=== PATIENT | female | born 1930 | race Caucasian/White ===

== ENCOUNTER 2017-10-07 14:50 | Emergency (ER) | payer BC, MEDICARE, OTHER ==
--- NOTE | 2017-10-07 17:50 | RAD ---
CHEST ONE VIEW ABDOMEN TWO VIEWS: History: 86-year-old female with concern for small bowel obstruction. Enlarged stoma and bag not fitting prope rly. Comparison: 05-01-[address] scan. FINDINGS: Atherosclerosis and old granuloma calcification changes are noted within the chest. The abdomen demon strates left inferior lateral ostomy site containing a moderate amount of gas consistent with bowel h erniation within the ostomy site which was present at the time of the prior CT. No evidence for large or small bowel obstruction. No free intraperitoneal air. There is one air fluid level in a nondilate d small bowel loop. IMPRESSION: Left inferior lateral stoma containing a moderate amount of gas, evidence for a bowel herniation with in the stoma which was present at the time of the prior CT. No evidence of overt acute large or small bowel obstruction although there are a few scattered nonspecific air fluid levels and nondilated sma ll bowel. POS: [facility]
== END 2017-10-07 16:46 | disposition home or self-care (01) ==
LOC: SCSER 14:50
DX: K94.09 Other complications of colostomy (principal); E78.5 Hyperlipidemia, unspecified
CPT/HCPCS: 74022

== ENCOUNTER 2017-11-16 14:45 | Outpatient (CLI) | payer MEDICARE, BC | END 2017-11-16 14:46 | disposition home or self-care (01) | LOC: WCC 14:45 | PROVIDERS: ATTEND Family Medicine | DX: K94.00 Colostomy complication, unspecified (principal) | CPT/HCPCS: 97139; G0463; 99211 ==

== ENCOUNTER 2017-11-22 17:34 | Emergency (ER) | payer MEDICARE, BC ==
[2017-11-22 18:50] LABS: #Basophils 0.2 thou/uL (0.0-0.2); #Eosinphils 0.6 thou/uL (0.0-0.7); #Lymphocytes 1.8 thou/uL (1.20-3.40); #Monocytes 0.8 thou/uL (0.11-0.59); #Neutrophils 4.7 thou/uL (1.40-6.50); %Basophils 2.5 % (0.0-1.0); %Eosinophils 7.5 % (0.0-10.0); %Lymphocytes 22.4 % (21.0-51.0); %Monocytes 9.2 % (0.0-10.0); %Neutrophils 58.4 % (42.0-75.0); Hemoglobin 11.4 g/dL (12.0-16.0); Mean Corpuscular HGB CONC 33.2 g/dL (32.0-36.0); Mean Corpuscular Hemoglobin 31.1 pg (27.0-31.0); Mean Corpuscular Volume 93.6 fl (81.0-99.0); Mean Platelet Volume 6.9 fL (7.4-10.4); Platelet Count 224 thou/uL (130-400); RBC Distribution Width 12.1 % (11.5-14.5); Red Blood Cell (RBC) Count 3.68 mill/uL (4.20-5.40); White Blood Cell (WBC) Count 8.1 thou/uL (4.8-10.8)
[2017-11-22 18:59] LABS: ALT (SGPT) 38 U/L (8-55); AST (SGOT) 42 U/L (5-34); Albumin 3.7 g/dL (3.4-4.8); Alkaline Phosphatase 52 U/L (40-150); Anion Gap 11 mmol/L (10-20); BUN (Urea Nitrogen) 22 mg/dL (9.8-20.1); Bilirubin, Total 0.3 mg/dL (0.2-1.2); Calc. Creatinine Clearance 0 mL/min (70-130); Calcium 9.3 mg/dL (7.8-10.44); Carbon Dioxide 30 mmol/L (23-31); Chloride 104 mmol/L (98-107); Estimated GFR-MDRD 51; Globulin 3.1 g/dL (2.4-3.5); Glucose 110 mg/dL (83-110); Potassium 3.4 mmol/L (3.5-5.1); Protein, Total 6.8 g/dL (6.0-8.3); Sodium 142 mmol/L (136-145)
[2017-11-22 19:28] LABS: Bilirubin Negative (Negative); Blood, Urine Negative (Negative); Clarity Hazy (Clear); Glucose, Urine (Dipstick) Negative (Negative); Leukocyte Small (Negative); Nitrite Negative (Negative); Protein, Urine (Dipstick) Negative (Neg-Trace); Urobilinogen 0.2 mg/dL (0.2-1.0)
--- NOTE | 2017-11-22 19:34 | CT ---
CT HEAD WITHOUT CONTRAST: 11/22/17 Multiple axial tomograms obtained through the head without IV enhancement. HISTORY: Fall with injury to head. There is mild cortical atrophy. No evidence of acute hemorrhage or contusion. No mass or infarct seen . Sinuses and mastoids are well aerated. IMPRESSION: Chronic changes. No acute abnormality identified. POS: [facility]
[2017-11-22 19:36] LABS: Bacteria/HPF 1+ HPF (None Seen); RBC/HPF None Seen HPF (0-3)
--- NOTE | 2017-11-22 19:42 | CT ---
CT CERVICAL SPINE: 11/22/17 Multiple axial tomograms obtained through the cervical spine with multiplanar reconstructions. HISTORY: Fall with injury to neck. Cervical vertebrae maintain height and alignment. There are mild to moderate degenerative changes. Di sc narrowing is prominent at C5-6 and C6-7 with hypertrophic changes at these levels. Facet hypertrop hy. No evidence of cervical spine fracture. IMPRESSION: Degenerative changes of the cervical spine. No evidence of acute fracture. POS: [facility]
[2017-11-22] MEDS ORDERED: Ibuprofen 600 MG TAB ONE (21:42)
== END 2017-11-22 21:45 | disposition home or self-care (01) ==
LOC: SCSER 17:34
DX: S09.90XA Unspecified injury of head, initial encounter (principal); M54.2 Cervicalgia; E78.5 Hyperlipidemia, unspecified; W01.190A Fall on same level from slipping, tripping and stumbling with subsequent striking against furniture, initial encounter; Y92.009 Unspecified place in unspecified non-institutional (private) residence as the place of occurrence of the external cause
CPT/HCPCS: 70450; 72125; 80053; 81003; 81015; 85025; 87086

== ENCOUNTER 2017-12-17 13:52 | Outpatient (CLI) | payer MEDICARE, BC | END 2017-12-17 13:53 | disposition home or self-care (01) | LOC: BICRAD 13:52 | PROVIDERS: ATTEND Internal Medicine | DX: M25.552 Pain in left hip (principal); R10.2 Pelvic and perineal pain; M79.651 Pain in right thigh | CPT/HCPCS: 72170 ==

== ENCOUNTER 2018-06-25 17:12 | Emergency (ER) | payer MEDICARE, BC ==
[2018-06-25 17:29] LABS: Bilirubin Small (Negative); Blood, Urine Small (Negative); Glucose, Urine (Dipstick) Negative (Negative); Leukocyte Trace (Negative); Nitrite Negative (Negative); Protein, Urine (Dipstick) 100 mg/dL (Neg-Trace)
[2018-06-25 17:30] LABS: Clarity Hazy (Clear)
[2018-06-25 17:36] LABS: Bacteria/HPF 2+ HPF (None Seen); WBC/HPF 0-3 HPF (0-3)
== END 2018-06-25 19:04 | disposition home or self-care (01) ==
LOC: SCSER 17:12
DX: N39.0 Urinary tract infection, site not specified (principal); E78.5 Hyperlipidemia, unspecified
CPT/HCPCS: 81003; 81015; 99284

== ENCOUNTER 2018-09-13 15:01 | Outpatient (CLI) | payer MEDICARE, BC ==
[~2018-09-13 15:01] MED LIST: Sodium Chloride 0.9% 15 ML NEB ONE
== END 2018-09-13 15:02 | disposition home or self-care (01) ==
LOC: WCC 15:01
PROVIDERS: ATTEND Family Medicine
DX: K45.8 Other specified abdominal hernia without obstruction or gangrene (principal); L98.499 Non-pressure chronic ulcer of skin of other sites with unspecified severity
CPT/HCPCS: 97139; G0463; 99211; A4218

== ENCOUNTER 2018-09-16 13:02 | Outpatient (CLI) | payer MEDICARE, BC | END 2018-09-16 13:03 | disposition home or self-care (01) | LOC: WCC 13:02 | PROVIDERS: ATTEND Family Medicine | DX: K43.5 Parastomal hernia without obstruction or gangrene (principal); L98.499 Non-pressure chronic ulcer of skin of other sites with unspecified severity | CPT/HCPCS: 97602 ==

== ENCOUNTER 2018-12-02 14:32 | Inpatient (IN) | payer MEDICARE, BC ==
[~2018-12-02 14:32] MED LIST changes: +Iopamidol 370 76% 100 ML VIAL ONE; -Sodium Chloride 0.9% 15 ML NEB ONE
[2018-12-02 15:36] LABS: Bilirubin Small (Negative); Blood, Urine Negative (Negative); Clarity CLEAR (Clear); Glucose, Urine (Dipstick) Negative (Negative); Leukocyte Negative (Negative); Nitrite Negative (Negative); Protein, Urine (Dipstick) 100 mg/dL (Neg-Trace); Specific Gravity, Urine 1.021 (1.002-1.036)
[2018-12-02 15:37] LABS: Bacteria/HPF None Seen HPF (None Seen); Hyaline Casts/LPF 7-10 HYALINE CAST LPF (0-3 Hyaline); Squamous Epithelial 0-3 HPF (0-3); WBC/HPF 0-3 HPF (0-3)
[2018-12-02 15:47] LABS: #Lymphocytes 0.6 thou/uL (1.20-3.40); #Monocytes 0.4 thou/uL (0.11-0.59); #Neutrophils 5.7 thou/uL (1.40-6.50); %Basophils 0.3 % (0.0-1.0); %Eosinophils 0.4 % (0.0-10.0); %Lymphocytes 9.3 % (21.0-51.0); Hemoglobin 10.5 g/dL (12.0-16.0); Mean Corpuscular HGB CONC 32.2 g/dL (32.0-36.0); Mean Corpuscular Hemoglobin 30.6 pg (27.0-31.0); Mean Corpuscular Volume 95.3 fL (78.0-98.0); Platelet Count 332 thou/uL (130-400); RBC Distribution Width 12.6 % (11.5-14.5); Red Blood Cell (RBC) Count 3.43 mill/uL (4.20-5.40); White Blood Cell (WBC) Count 6.8 thou/uL (4.8-10.8)
[2018-12-02] MEDS ORDERED: cefTRIAXone\\ROCEPHIN 2 GM VIAL ONE (15:49)
[2018-12-02] MEDS ORDERED: Acetaminophen 500 MG TAB ONE (15:49)
[2018-12-02 16:07] LABS: ALT (SGPT) 28 U/L (8-55); AST (SGOT) 71 U/L (5-34); Albumin 2.8 g/dL (3.4-4.8); Alkaline Phosphatase 65 U/L (40-150); Anion Gap 12 mmol/L (10-20); BUN (Urea Nitrogen) 9 mg/dL (9.8-20.1); Bilirubin, Total 0.7 mg/dL (0.2-1.2); CK (CPK) 56 U/L (29-168); Calc. Creatinine Clearance 0 mL/min (70-130); Calcium 8.2 mg/dL (7.8-10.44); Carbon Dioxide 23 mmol/L (23-31); Chloride 100 mmol/L (98-107); Estimated GFR-MDRD 73; Globulin 2.8 g/dL (2.4-3.5); Glucose 105 mg/dL (83-110); Protein, Total 5.6 g/dL (6.0-8.3); Sodium 132 mmol/L (136-145)
--- NOTE | 2018-12-02 16:15 | RAD ---
SINGLE VIEW CHEST: Date: 12/02/18 COMPARISON: 02/05/17. HISTORY: Decreased appetite. Nausea, vomiting, and fever. FINDINGS: Single view of the chest shows normal sized cardiomediastinal silhouette. A calcified granuloma is se en in the left upper lobe. There is no evidence of consolidation or pleural effusion. IMPRESSION: No evidence of acute cardiopulmonary disease. POS: [facility]
[2018-12-02 16:21] LABS: Potassium 2.8 mmol/L (3.5-5.1)
[2018-12-02] MEDS ORDERED: Potassium Chloride 20 MEQ TAB ONE (16:28)
[2018-12-02 16:31] LABS: CKMB 0.5 ng/mL (0-6.6)
--- NOTE | 2018-12-02 17:22 | CT ---
CT ABDOMEN AND PELVIS WITH IV CONTRAST: Date: 12/02/18 INDICATION: History of left-sided flank pain with history of bladder suspension surgery, hysterectomy, colostomy, and basal cell removal. COMPARISON: Prior CT of the abdomen and pelvis dated 05/01/17. FINDINGS: The exam is compared to the prior dated 05/01/17. There are small bilateral pleural effusions and bibasilar atelectasis. There is a small pericardial effusion. There is a tiny hypodensity within the left hepatic lobe on image 10 of series, which is relatively s table to the prior exam. The gallbladder is surgically absent. The pancreas, adrenal glands, and spleen appear within normal limits. There is a stable, 2.0 cm, cyst involving the mid right kidney. There are tiny hypodensities involving both kidneys, too small to ch aracterize. There are moderate calcifications involving the abdominal aorta. There is a left lower quadrant parastomal hernia containing small bowel and large bowel. There is mil d free fluid in the pelvis. There is prominent wall thickening and paracolonic inflammatory stranding involving the sigmoid colon . There is a peripherally enhancing paracolonic fluid collection adjacent to the sigmoid colon and le ft external iliac vasculature on image 56 of series 4 measuring 4.6 x 5.7 cm greatest mediolateral AP dimension suspicious for a paracolonic abscess. The remaining colon is largely decompressed. There is some suspected mild wall thickening involving p ortions of the transverse colon and ascending colon, which may reflect additional changes of colitis. The diverting colostomy is largely decompressed. There is scattered degenerative and osteoarthritic change. IMPRESSION: 1. Prominent colitis involving the sigmoid colon with paracolonic abscess. 2. Wall thickening involving the remainder of the colon, some of which may be related to accentuatio n of the appearance of the wall thickness due to decompression, but a diffuse colitis possibly relate d to inflammatory bowel disease or infectious colitis cannot be entirely excluded. There is no overt evidence of obstruction. 3. Small bilateral pleural effusions and pericardial effusion. 4. Mild free fluid in the pelvis. 5. Large left lower quadrant parastomal hernia containing unobstructed loops of small and large abdiaziz l. 6. Renal cysts. 7. Cholecystectomy. POS: [facility]
[2018-12-02] MEDS ORDERED: Sodium Chloride 0.9% 100 ML ONE (18:20)
[2018-12-02] MEDS ORDERED: Piperacillin/Tazobactam 4.5 GM VIAL ONE (18:20)
[2018-12-02] MEDS ORDERED: Sodium Chloride 0.9% 1,000 ML IV SCH (20:00)
--- NOTE | 2018-12-02 20:05 | RAD ---
LEFT HIP TWO VIEWS: HISTORY: Left hip pain. FINDINGS: There is mild degenerative arthrosis of the left hip. There is diffuse osteopenia. No definite acut e fracture is evident. There is IV contrast within the region of the bladder, likely related to the patient's prior CT of the abdomen and pelvis, performed earlier, at 4:39 p.m. There is healed deform ity involving the left inferior pubic ramus. IMPRESSION: No acute osseous abnormality. POS: [facility]
[2018-12-02 20:46] LABS: Troponin I 0.027 ng/mL (< 0.028)
--- NOTE | 2018-12-02 20:53 | HP ---
HISTORY OF PRESENT ILLNESS: Bell Owen is an 87-year-old female, who was previously living at home, but recently moved into [facility], an assisted living. The patient's brother is at the bedside currently and gives me reliable history. The patient's brother found her in her room and in [place], lethargic. He reports that she had been complaining of left hip pain. He brought her to the emergency room. She is found to have a sodium of 132, potassium of 2.8, BUN and creatinine of 9 and 0.75, a fever to 102 degrees. Liver function tests normal. The patient's brother reports she has been complaining of left hip pain. Hip x-rays have not been obtained, and we will order the stat. The patient apparently was ambulatory in the past and driving until 4 months ago, but has not driven since them. The patient abruptly left her home, put it on the market and removed into [place]. The patient's brother is uncertain how she has been obtaining food and supplies that she has not driven recently. The patient is a DNR. Her brother has power of consumer attorney. The patient in February 2017, underwent loop diverting colostomy for an obstructing left colon probably from stricture. She has developed a parastomal hernia. CAT scan of the abdomen and pelvis obtained this hospitalization reveals a parastomal hernia, colon, and large bowel. There is suggestion of a 4 x 3 cm fluid collection with thickened colon wall in this area, although, I cannot appreciate that. The patient is lethargic and I cannot obtain a history from here. ALLERGIES: NONE. SOCIAL HISTORY: Tobacco, none. Alcohol, none. MEDICATIONS: At home: 1. Sertraline. 2. Senokot. 3. Crestor. 4. MiraLAX. 5. Protonix. 6. Tums. 7. Pepto-Bismol. 8. Dulcolax. 9. Amiodarone 400 mg b.i.d. 10. Maalox. 11. Tylenol Extra Strength p.r.n. PAST SURGICAL HISTORY: In 2017, loop colostomy secondary to left colon obstruction. Dr. Ramos performed colonoscopy prior. Hysterectomy, urine suspension. PAST MEDICAL HISTORY: Skin cancers, dyslipidemia, hypertension. The patient has had an overall decline in her health and physical status and mental status. Her brother reports mental deterioration recently with decreased ability to care for herself. The patient has been uncooperative with her brother, although, he is power of consumer attorney. PHYSICAL EXAMINATION: VITAL SINGS: Blood pressure 124/70, heart rate 80, and respiratory rate 18. HEENT: The patient opens eyes to voice. LUNGS: Clear to auscultation. CARDIAC: Regular rate and rhythm. ABDOMEN: Soft, parastomal hernia. She has mild tenderness in her abdomen. EXTREMITIES: Unremarkable. LABORATORY DATA: Sodium 132, potassium 2.8, BUN 9, and creatinine 0.75. DIAGNOSTIC DATA: Echocardiogram of January 2017, 60% to 65% ejection fraction, 2/3 diastolic dysfunction, mild mitral aortic and tricuspid regurgitation. Chest x-ray unremarkable, no acute Urinalysis unremarkable. ASSESSMENT AND PLAN: Fever, lethargy, and abdominal tenderness. Her white count is normal. There is no left shift. There are no acute findings on the CAT scan. I questioned the collection described by the radiologist as I cannot appreciate that on her CAT scan. We would recommend admission to the Medical Service. Continue DNR status. Normal saline hydration. Even though her BUN and creatinine are normal, I think she is significantly dehydrated. Dr. Maguire will return tomorrow, and she will follow her up, make further recommendations, pending clinical course and hydration, discussion with family. Job ID: [id number]
[2018-12-02 23:36] LABS: Troponin I 0.014 ng/mL (< 0.028)
[2018-12-03] MEDS ORDERED: Piperacillin/Tazobactam 4.5 GM VIAL ONE (00:13)
[2018-12-03] MEDS ORDERED: Piperacillin/Tazobactam 3.375 GM VIAL ONE ×3 (00:16→12:46)
[2018-12-03 04:01] LABS: ALT (SGPT) 45 U/L (8-55); AST (SGOT) 112 U/L (5-34); Alkaline Phosphatase 73 U/L (40-150); Anion Gap 17 mmol/L (10-20); BUN (Urea Nitrogen) 9 mg/dL (9.8-20.1); Bilirubin, Total 0.8 mg/dL (0.2-1.2); Calc. Creatinine Clearance 0 mL/min (70-130); Calcium 8.8 mg/dL (7.8-10.44); Carbon Dioxide 20 mmol/L (23-31); Chloride 107 mmol/L (98-107); Estimated GFR-MDRD 64; Globulin 3.3 g/dL (2.4-3.5); Glucose 98 mg/dL (83-110); Potassium 3.9 mmol/L (3.5-5.1); Protein, Total 6.3 g/dL (6.0-8.3); Sodium 140 mmol/L (136-145)
[2018-12-03 04:20] LABS: #Lymphocytes 0.9 thou/uL (1.20-3.40); #Monocytes 0.5 thou/uL (0.11-0.59); #Neutrophils 14.5 thou/uL (1.40-6.50); %Basophils 0.3 % (0.0-1.0); %Eosinophils 0.3 % (0.0-10.0); %Lymphocytes 5.9 % (21.0-51.0); %Monocytes 3.2 % (0.0-10.0); %Neutrophils 90.4 % (42.0-75.0); Hemoglobin 13.1 g/dL (12.0-16.0); Mean Corpuscular HGB CONC 30.7 g/dL (32.0-36.0); Mean Corpuscular Hemoglobin 29.9 pg (27.0-31.0); Mean Corpuscular Volume 97.6 fL (78.0-98.0); Mean Platelet Volume 8.1 fL (7.4-10.4); Platelet Count 358 thou/uL (130-400); Red Blood Cell (RBC) Count 4.37 mill/uL (4.20-5.40)
[2018-12-03] MEDS ORDERED: Sodium Chloride 0.9% 100 ML ONE ×2 (06:21→12:46)
--- NOTE | 2018-12-03 06:44 | HP ---
PRIMARY CARE PHYSICIAN: Venus Lee MD CODE STATUS: DNR/DNI. TIME OF EVALUATION: 8:30 p.m. CHIEF COMPLAINT: Weakness. HISTORY OF PRESENT ILLNESS: This is an 88-year-old female patient with past medical history of multiple comorbidities including dementia, hypertension, hyperlipidemia, high cholesterol, and tachycardia. The patient also has a colostomy bag with multiple hernias in the ostomy site. The patient came to the hospital after having gradually worsening change in mental status and left flank pain. The pain was moderate. The symptoms have been present for the past 3 days and has been gradually getting worse, associated with fever. On the CAT scan, it showed a possible abscess. Dr. Baker seen the patient for recommendation from surgical point of view. REVIEW OF SYSTEMS: Unable to obtain. The patient is confused. PAST MEDICAL HISTORY: Includes as mentioned in the HPI. PAST SURGICAL HISTORY: Bladder suspension, from face, hysterectomy and colostomy. PSYCH HISTORY: No previous psych history. FAMILY HISTORY: Reviewed and non contributory for current presentation. SOCIAL HISTORY: No alcohol, no drugs. No smoking history. ALLERGIES: NO KNOWN DRUG ALLERGIES REPORTED. MEDICATIONS: Unknown. PHYSICAL EXAMINATION: VITAL SIGNS: On presentation, blood pressure 117/51, heart rate 75, respiratory rate was 20, temperature 98.7. Also on one occasion, temperature was 101.7, blood pressure 116/50 with heart rate 68. GENERAL APPEARANCE: The patient is confused at this point due to pain medication. HEENT: Eyes; normal conjunctivae. Moist oral mucosa. Anicteric. No JVD. RESPIRATORY: Bilateral air entry. No rales. No wheezing. Symmetric expansion. CARDIOVASCULAR: The patient was in normal rate, regular rhythm. No murmurs, no gallops. No edema. ABDOMEN: Soft. The patient has significant hernia around in the colostomy area. Colostomy seems to be working properly. MUSCULOSKELETAL: Baseline range of motion and strength. No tenderness. SKIN: Warm and intact. No pallor. No rashes. The patient has redness surrounding the colostomy. Peripheral pulses are present. Capillary refill seems to be intact. NEURO: No evidence of any new focal weakness. The patient seems to be at baseline, although more confused as per . DIAGNOSTIC STUDIES: EKG was reviewed. The patient has normal sinus rhythm with a rate of 77 with no ectopy , normal T-waves, normal axis. Checks x- ray was reviewed. The patient has no evidence of acute cardiopulmonary disease. Abdomen and pelvis CT was reviewed, the patient has prominent colitis involving the sigmoid colon and paracolonic abscess. Wall thickening involving the remaining of the colon stoma, which may be treated as inpatient for the appearance of the wall thickness due to decompensation by the diffuse colitis possibly related from inflammatory bowel disease or infection. Colitis cannot be entirely excluded. There is no overt evidence of obstruction, small bilateral pleural effusion and pericardial effusion. Mild free fluid in the pelvis/left lower quadrant parastomal hernia containing most of the loops of small and large bowel, renal cyst, cholecystectomy. Hip x-ray, no acute osseous abnormalities. LABORATORY DATA: Labs were reviewed. The patient has white count of 6.8, it came up to 16, hemoglobin 10.5, platelet count 332. Sodium is 132, potassium 2.8, the second one is 3.9, chloride 100, carbon dioxide 23, anion gap 12, BUN 9, creatinine was normal. GFR 73. LFTs were normal. Troponin 0.030, second one 0.014. Serum total protein 5.6, albumin 2.8, albumin globulin ratio 1.0. UA was reviewed. The patient had negative urine. ASSESSMENT AND PLAN: The patient presented to the hospital with following medical problems: 1. Sepsis. The patient has leukocytosis, fever, possible source is acute colitis and cabrera colitis. The patient has been started on Zosyn. Surgery has seen the patient as the patient has been reported to have a possible abscess. Dr. Baker has seen the patient and does not think that may be the right diagnosis. We will continue with antibiotics. Considering do not resuscitate/do not intubate and multiple comorbidities, not the best candidate for any surgical procedure. 2. Acute encephalopathy. The patient has underlying dementia as well as the patient has worsened mentation in the past 3 days. This is due to some sepsis. We will treat the underlying condition. 3. Hyponatremia, sodium 132. This has corrected to 140, so has resolved. 4. Hypokalemia 2.8. This has resolved to potassium now of 3.9. 5. Initial troponin mildly elevated at 0.030, that has corrected back to normal. This may be secondary to a [id number] myocardial infarction type 2 due to underlying sepsis. We will treat underlying condition. 6. Controlled hypertension, we will reconcile home medications. We will adjust treatment as needed. 7. Deep venous thrombosis prophylaxis. 8. Hyperlipidemia. Low-cholesterol diet is advised. Reconcile home medications. Job ID: [id number] MTDD
--- NOTE | 2018-12-03 10:30 | PRG ---
DATE OF SERVICE: 12/03/2018 SUBJECTIVE: The patient reports she is feeling substantially better today. Her pain in her left hip and flank area is significantly improved. Her brother is in the room with her and reports that overall she looks like she is much better than she was yesterday. OBJECTIVE: VITAL SIGNS: Blood pressure 91/53, pulse 69, respirations 22, temperature 97.9, and O2 saturation 95% on 2 L. GENERAL APPEARANCE: Age-appropriate female. She is in no distress. She appears relatively comfortable, conversant, very hard of hearing. HEART: Regular rate and rhythm without murmurs, gallops, or rubs. LUNGS: Clear to auscultation bilaterally. Good chest wall expansion and air exchange. ABDOMEN: Soft and nondistended. There is a large parastomal hernia. Stoma is in place. There are some areas of leakage, where the patient has packed some gauze. She has tender in the lower abdomen and the right upper abdomen as well. No significant rebound. EXTREMITIES: Trace edema on left lower extremity, otherwise no edema. IMPRESSION AND PLAN: 1. Abdominal pain with T-max of 102.3. The white count that is now up to 16,000. CT interpretation by Radiology suggests that colitis with possible pericolonic abscess of the sigmoid area. Dr. Baker was not confident that was in fact the case. The patient is currently on fluids and Zosyn, and her regular surgeon who is Dr. Maguire should see the patient today. 2. Sepsis, likely due to colitis. Continue with some IV fluids. At this point, she did receive initial resuscitation and antibiotics. 3. Acute encephalopathy appears to be significantly improved. 4. Hyponatremia. Sodium is normalized. 5. Hypokalemia. Potassium is normalized. 6. Hypertension, well controlled. In fact, the patient is borderline hypotensive. 7. Slight elevation of troponin with a trend downward. Do not suspect acute ischemic event. Job ID: [id number]
[2018-12-03 17:44] VITALS: BMI 22.4
[2018-12-03] MEDS: NS 0.9% w/ 40 MEQ KCL 1,000 ML IV SCH ×3 (18:29→21:27)
[2018-12-03] MEDS: Piperacillin/Tazobactam 3.375 GM in Sodium Chloride 0.9% 100 ML IVPB SCH ×3 (18:32→23:19)
[2018-12-03] MEDS ORDERED: Prevnar 13-Val Conj/PF 0.5 ML SYRINGE IM ONE (21:00)
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
[2018-12-04] MEDS: NS 0.9% w/ 40 MEQ KCL 1,000 ML IV SCH ×4 (06:06→21:13)
[2018-12-04] MEDS: Piperacillin/Tazobactam 3.375 GM in Sodium Chloride 0.9% 100 ML IVPB SCH ×4 (06:07→23:32)
[2018-12-04] MEDS ORDERED: Bisacodyl 5 MG TAB PO PRN (07:41)
[2018-12-04] MEDS ORDERED: Senokot 8.6 MG TAB PO PRN (07:41)
[2018-12-04] MEDS ORDERED: Calcium Carbonate 500 MG ChewTAB PO PRN (07:41)
[2018-12-04 08:29] LABS: #Eosinphils 0.2 thou/uL (0.0-0.7); #Lymphocytes 1.9 thou/uL (1.20-3.40); #Monocytes 0.7 thou/uL (0.11-0.59); %Basophils 0.3 % (0.0-1.0); %Lymphocytes 17.5 % (21.0-51.0); %Monocytes 6.6 % (0.0-10.0); %Neutrophils 73.6 % (42.0-75.0); Mean Corpuscular HGB CONC 31.1 g/dL (32.0-36.0); Mean Corpuscular Hemoglobin 30.6 pg (27.0-31.0); Mean Corpuscular Volume 98.7 fL (78.0-98.0); Mean Platelet Volume 8.1 fL (7.4-10.4); Platelet Count 305 thou/uL (130-400); RBC Distribution Width 13.1 % (11.5-14.5); Red Blood Cell (RBC) Count 3.58 mill/uL (4.20-5.40); White Blood Cell (WBC) Count 10.9 thou/uL (4.8-10.8)
[2018-12-04 08:45] LABS: Anion Gap 10 mmol/L (10-20); BUN (Urea Nitrogen) 11 mg/dL (9.8-20.1); Calc. Creatinine Clearance 41 mL/min (70-130); Calcium 8.2 mg/dL (7.8-10.44); Carbon Dioxide 21 mmol/L (23-31); Chloride 112 mmol/L (98-107); Estimated GFR-MDRD 69; Glucose 83 mg/dL (83-110); Potassium 4.1 mmol/L (3.5-5.1); Sodium 139 mmol/L (136-145)
[2018-12-04] MEDS ORDERED: Non-Formulary Item 1 EACH (Sertraline Hcl [Sertraline Hcl] 50 MG) PO SCH (09:00)
[2018-12-04] MEDS: Saccharomyces boulardii 250 MG CAP PO SCH (09:47)
[2018-12-04] MEDS: Amiodarone 200 MG TAB PO SCH ×2 (09:47→21:15)
[2018-12-04] MEDS: Polyethylene Glycol 3350 17 GM Packet PO SCH (09:48)
--- NOTE | 2018-12-04 14:47 | PQF ---
ALLISON LLANOS DAVID R MD [id number] CLINICAL DOCUMENTATION IMPROVEMENT CLARIFICATION FORM: ICD-10 Updated PLEASE DO AN ADDENDUM TO THE PROGRESS NOTE WITH ANY DOCUMENTATION UPDATES OR ADDITIONS AND CARRY THROUGH TO DC SUMMARY. THANK YOU. DATE: 12/04/2018 ATTN: DR. SHRESTHA Please exercise your independent, professional judgment in responding to the clarification form. Clinical indicators are provided on the bottom of this form for your review Please check appropriate box(s): [x ] Acute Metabolic Encephalopathy in the setting of underlying dementia due to sepsis [ ] Acute Metabolic Encephalopathy in the setting of underlying dementia; multifactorial [ ] Transient Alteration of Awareness [ ] Other diagnosis [ ] Unable to determine For continuity of documentation, please document condition throughout progress notes and discharge summary. Thank You. CLINICAL INDICATORS - SIGNS / SYMPTOMS / LABS 12/02-ER: Patient confused/disoriented. Patient is oriented to person. Historian reports confusion. 12/03-H&P: Worsening mental status and left flank pain x 3 days. DX: 1. Sepsis. Patient has leukocytosis, fever, possible source acute colitis and pancolitis. Started on Zosyn. 2. Acute Encephalopathy. This is due to some sepsis. The patient has underlying dementia as well as the patient has worsened mentation in the past 3 days. 3. Hyponatremia at 132 4. Hypokalemia at 2.8. 12/03-Progress Note: 3. Acute Encephalopathy; appears significantly improved. RISK FACTORS Infectious process Electrolyte imbalance Advanced Age - 88 y/o History of dementia TREATMENTS Cause is corrected encephalopathy resolves Correction of electrolyte imbalances IV antibiotics IV fluids Thank you, Cassie (This form is maintained as a part of the permanent medical record) 2014 [employer]. All Rights Reserved Cassie Blake RN, CDIS [email or web address] [phone] [facility]
--- NOTE | 2018-12-04 15:19 | PQF ---
ALLISON LLANOS DAVID R MD [id number] CLINICAL DOCUMENTATION IMPROVEMENT CLARIFICATION FORM: ICD-10 Updated PLEASE DO AN ADDENDUM TO THE PROGRESS NOTE WITH ANY DOCUMENTATION UPDATES OR ADDITIONS AND CARRY THROUGH TO DC SUMMARY. THANK YOU. DATE: 12/04/2018 ATTN: DR. SHRESTHA Please exercise your independent, professional judgment in responding to the clarification form. Clinical indicators are provided on the bottom of this form for your review Please check appropriate box(s): [ x ] Acute Myocardial Infarction, Type II in the setting of Sepsis [ ] Acute Myocardial Infarction with Demand Ischemia in the setting of Sepsis [ ] Acute Myocardial Infarction, Type II with Demand Ischemia in the setting of Sepsis [ ] Demand Ischemia Only, in the setting of Sepsis [ ] Other diagnosis [ ] Unable to determine CLINICAL INDICATORS - SIGNS / SYMPTOMS / LABS 12/03-H&P: INITIAL TROP MILDLY ELEVATED AT 0.030; THAT HAS CORRECTED BACK TO NORMAL. MAY BE 2/2 NSTEMI TYPE 2 D/T UNDERLYING SEPSIS. WILL TREAT UNDERLYING CONDITION. RISKS Hypertension High Cholesterol/Lipids TREATMENTS IVF and IV antibiotics for the underlying condition. 12/03-PN: SLIGHT ELEVATION OF TROP WITH A TREND DOWNWARD. DO NOT SUSPECT ACUTE ISCHEMIC EVENT. (This form is maintained as a part of the permanent medical record) 2014 [employer] All Rights Reserved Cassie Blake RN, CDIS [email or web address] [phone] MTDD
--- NOTE | 2018-12-04 16:45 | PDOC.PN ---
- Subjective Encounter Start Date: 12/04/18 Encounter Start Time: 09:30 Doing well today. No more pain in the flank area or abdomen. No complaints. - Objective Resuscitation Status - Order Detail: 12/02/18 19:46 Resuscitation Status Routine Resuscitation Status: DNAR: NO Resuscitation Discussed with: discussed with brother BALJEET Vital Signs & Weight: Vital Signs (12 hours) Temp Pulse Resp BP Pulse Ox 12/04/18 12:04 97.6 F 74 18 124/66 93 L 12/04/18 08:03 98.1 F 70 18 122/58 L 93 L 12/04/18 08:00 93 L Weight Admit Weight 115 lb Weight 115 lb I&O: 12/03/18 12/04/18 12/05/18 06:59 06:59 06:59 Intake Total 1176 Balance 1176 Result Diagrams: 12/04/18 08:14 12/04/18 08:14 Phys Exam - Physical Examination Constitutional: NAD Respiratory: no wheezing, no rales, no rhonchi, clear to auscultation bilateral Cardiovascular: RRR, no significant murmur, no rub Gastrointestinal: soft, non-tender, no distention, positive bowel sounds Musculoskeletal: no edema Neurological: non-focal Deviation from normal: Dementia. Pleasant. Dx/Plan (1) Colitis Code(s): K52.9 - NONINFECTIVE GASTROENTERITIS AND COLITIS, UNSPECIFIED Status : Acute (2) Dementia Code(s): F03.90 - UNSPECIFIED DEMENTIA WITHOUT BEHAVIORAL DISTURBANCE Status: Chronic (3) HLD (hyperlipidemia) Code(s): E78.5 - HYPERLIPIDEMIA, UNSPECIFIED Status: Chronic (4) HTN (hypertension) Code(s): I10 - ESSENTIAL (PRIMARY) HYPERTENSION Status: Chronic (5) Elevated troponin Code(s): R74.8 - ABNORMAL LEVELS OF OTHER SERUM ENZYMES Status: Resolved Comment: Demand ishcemia with infection. Type II. (6) Acute metabolic encephalopathy Code(s): G93.41 - METABOLIC ENCEPHALOPATHY Status: Resolved Comment: Secondary to infection. (7) Parastomal hernia Code(s): K43.5 - PARASTOMAL HERNIA WITHOUT OBSTRUCTION OR GANGRENE Status: Acute (8) Parastomal ulcer Code(s): KAH0532 - Status: Acute - Plan * Discussed with surg. * She is doing well with conservative management. * Continue abx. If she continues to do well tomorrow, may be able to convert to oral meds. * SHe is high risk for surgery for a number of reasons, her dementia being at the top of the list. Active infection a concern as well. * She was doing well with her stoma in [place]. Apparently has fired all of the home health aides that have been hired to help her over time. No stoma care is poor. * May need to consider placement.
--- NOTE | 2018-12-04 17:01 | PDOC.GSPN ---
Surgery Progress Note: Subj - Subjective Narrative: Patient states that she is not feeling so good today but she can't really say what is the matter. She can't tell me how much she has been eating and thinks that I was asking her about her pills. She denies nausea. She is still having some pain in her lower abdomen. She complains about having trouble urinating but then states that that was several days ago and now she is doing fine. Her white count has come down and she is afebrile with normal vital signs. She still has some tenderness in the lower abdomen but is difficult to discern whether that is from the hernia or an intra-abdominal process. The colostomy looks healthy and there is some stool and gas in the bag. Assessment/plan: Patient with colitis and long-standing parastomal hernia with skin erosions due to refusing care by home health. Her colostomy is appropriately dressed now and I'm hopeful that her skin will heal with standard wound care. She continues to be a poor operative candidate due to her severe frailty and dementia, and clinically appears to be responding to antibiotics for colitis. No surgery planned at present. I'm going to ask the nurses to do a calorie count. Surgery Progress Note: Obj - Vital signs Vital signs: Vital Signs - Most Recent Temp Pulse Resp BP Pulse Ox 97.6 F 74 18 124/66 93 L 12/04/18 12:04 12/04/18 12:04 12/04/18 12:04 12/04/18 12:04 12/04/18 12:04 Surgery Progress Note: Results - Labs Result Diagrams: 12/04/18 08:14 12/04/18 08:14 Lab results: Laboratory Results - last 24 hr 12/04/18 12/04/18 08:14 08:14 WBC 10.9 H RBC 3.58 L Hgb 11.0 L Hct 35.4 L MCV 98.7 H MCH 30.6 MCHC 31.1 L RDW 13.1 Plt Count 305 MPV 8.1 Neutrophils % 73.6 Lymphocytes % 17.5 L Monocytes % 6.6 Eosinophils % 2.0 Basophils % 0.3 Neutrophils # 8.0 H Lymphocytes # 1.9 Monocytes # 0.7 H Eosinophils # 0.2 Basophils # 0.0 Sodium 139 Potassium 4.1 Chloride 112 H Carbon Dioxide 21 L Anion Gap 10 BUN 11 Creatinine 0.79 Estimated GFR (MDRD) 69 Glucose 83 Calcium 8.2
[2018-12-04] MEDS: Acetaminophen 500 MG TAB PO PRN ×2 (18:07→21:18)
[2018-12-04] MEDS ORDERED: Non-Formulary Item 1 EACH (Rosuvastatin Calcium [Crestor] 40 MG) PO SCH (21:00)
[2018-12-04] MEDS: Rosuvastatin 20 MG TAB PO SCH (21:15)
[2018-12-05] MEDS: Piperacillin/Tazobactam 3.375 GM in Sodium Chloride 0.9% 100 ML IVPB SCH ×3 (05:01→18:06)
[2018-12-05] MEDS: NS 0.9% w/ 40 MEQ KCL 1,000 ML IV SCH (05:01)
[2018-12-05 06:33] LABS: #Eosinphils 0.3 thou/uL (0.0-0.7); #Monocytes 0.6 thou/uL (0.11-0.59); #Neutrophils 7.5 thou/uL (1.40-6.50); %Basophils 0.3 % (0.0-1.0); %Lymphocytes 19.5 % (21.0-51.0); %Monocytes 5.6 % (0.0-10.0); %Neutrophils 71.6 % (42.0-75.0); Hemoglobin 11.1 g/dL (12.0-16.0); Mean Corpuscular HGB CONC 31.3 g/dL (32.0-36.0); Mean Corpuscular Volume 99.1 fL (78.0-98.0); Mean Platelet Volume 8.1 fL (7.4-10.4); Platelet Count 283 thou/uL (130-400); RBC Distribution Width 13.2 % (11.5-14.5); Red Blood Cell (RBC) Count 3.59 mill/uL (4.20-5.40); White Blood Cell (WBC) Count 10.4 thou/uL (4.8-10.8)
[2018-12-05 06:45] LABS: Anion Gap 10 mmol/L (10-20); BUN (Urea Nitrogen) 10 mg/dL (9.8-20.1); Calc. Creatinine Clearance 42 mL/min (70-130); Calcium 8.2 mg/dL (7.8-10.44); Carbon Dioxide 21 mmol/L (23-31); Cardiac Risk 7.4 (Less than 4.5); Chloride 111 mmol/L (98-107); Cholesterol 119 mg/dl (< 200 Desired); Estimated GFR-MDRD 71; Glucose 102 mg/dL (83-110); HDL Cholesterol 16 mg/dL (>60 Neg Risk); LDL Cholesterol, Calculated 73 mg/dL; Potassium 4.4 mmol/L (3.5-5.1); Sodium 138 mmol/L (136-145); Triglycerides 151 mg/dL (Less than 150)
[2018-12-05] MEDS: Polyethylene Glycol 3350 17 GM Packet PO SCH (08:58)
[2018-12-05] MEDS: Amiodarone 200 MG TAB PO SCH ×2 (08:58→20:15)
[2018-12-05] MEDS: Saccharomyces boulardii 250 MG CAP PO SCH (08:58)
--- NOTE | 2018-12-05 12:06 | RAD ---
CHEST 1 VIEW: HISTORY: Wheezing and decreased O2 saturation. COMPARISON: Radiograph 3 days prior. FINDINGS: There is increased opacity in the right middle lobe with obscuration of the medial right cardiac bord er. Left upper lobe calcified granuloma is present. Small right effusion. IMPRESSION: Findings concerning for developing right perihilar middle lobe pneumonia and small peripneumonic effu yuriy. Follow up recommended. POS: LOUISE
--- NOTE | 2018-12-05 14:09 | PDOC.GSPN ---
Surgery Progress Note: Subj - Subjective Narrative: Patient states that she had a rough night because the room was too cold for her to sleep. She is not having any abdominal pain or nausea. Her nurse states that she ate about half her breakfast. She has refused Ensure but is willing to try mighty shakes and states that she likes chocolate milk. She doesn't exhibit any tenderness when I palpate her lower abdomen today. Her colostomy looks healthy but there is not much in the bag. Her white count continues to slowly decline in her left shift has resolved. Assessment/plan: Colitis with small abscess being managed medically. Clinically she continues to improve. I have asked physical therapy and occupational therapy to start working with her. I will check her peristomal skin with the wound care team at the next colostomy change tomorrow. She is a poor surgical candidate. Surgery Progress Note: Obj - Vital signs Vital signs: Vital Signs - Most Recent Temp Pulse Resp BP Pulse Ox 98.0 F 98 20 126/69 95 12/05/18 13:26 12/05/18 13:26 12/05/18 13:26 12/05/18 13:26 12/05/18 13:26 Surgery Progress Note: Results - Labs Result Diagrams: 12/05/18 06:06 12/05/18 06:06 Lab results: Laboratory Results - last 24 hr 12/05/18 12/05/18 12/05/18 06:06 06:06 06:06 WBC 10.4 RBC 3.59 L Hgb 11.1 L Hct 35.6 L MCV 99.1 H MCH 31.0 MCHC 31.3 L RDW 13.2 Plt Count 283 MPV 8.1 Neutrophils % 71.6 Lymphocytes % 19.5 L Monocytes % 5.6 Eosinophils % 3.0 Basophils % 0.3 Neutrophils # 7.5 H Lymphocytes # 2.0 Monocytes # 0.6 H Eosinophils # 0.3 Basophils # 0.0 Sodium 138 Potassium 4.4 Chloride 111 H Carbon Dioxide 21 L Anion Gap 10 BUN 10 Creatinine 0.77 Estimated GFR (MDRD) 71 Glucose 102 Calcium 8.2 Prealbumin 7.0 L Triglycerides 151 H Cholesterol 119 LDL Cholesterol, Calc 73 HDL Cholesterol 16 Heart Disease Risk Ratio 7.4
--- NOTE | 2018-12-05 14:15 | PDOC.PN ---
- Subjective Encounter Start Date: 12/05/18 Encounter Start Time: 11:35 Not feeling as well today. Says she has caught a cold. Feels some head congestion. - Objective Resuscitation Status - Order Detail: 12/02/18 19:46 Resuscitation Status Routine Resuscitation Status: DNAR: NO Resuscitation Discussed with: discussed with brother BALJEET Vital Signs & Weight: Vital Signs (12 hours) Temp Pulse Resp BP Pulse Ox 12/05/18 13:26 98.0 F 98 20 126/69 95 12/05/18 07:33 97.9 F 98 20 128/70 98 Weight Admit Weight 115 lb Weight 115 lb I&O: 12/04/18 12/05/18 12/06/18 06:59 06:59 06:59 Intake Total 1176 1371 240 Output Total 25 Balance 1176 1346 240 Result Diagrams: 12/05/18 06:06 12/05/18 06:06 Phys Exam - Physical Examination Constitutional: NAD Respiratory: no wheezing, no rales, no rhonchi, clear to auscultation bilateral Cardiovascular: RRR, no significant murmur Gastrointestinal: soft, non-tender, no distention, positive bowel sounds Stoma with parastomal hernia. Musculoskeletal: no edema Neurological: non-focal Very pleasant, slightly confused. Skin: no rash Dx/Plan (1) Colitis Code(s): K52.9 - NONINFECTIVE GASTROENTERITIS AND COLITIS, UNSPECIFIED Status : Acute (2) Dementia Code(s): F03.90 - UNSPECIFIED DEMENTIA WITHOUT BEHAVIORAL DISTURBANCE Status: Chronic (3) HLD (hyperlipidemia) Code(s): E78.5 - HYPERLIPIDEMIA, UNSPECIFIED Status: Chronic (4) HTN (hypertension) Code(s): I10 - ESSENTIAL (PRIMARY) HYPERTENSION Status: Chronic (5) Elevated troponin Code(s): R74.8 - ABNORMAL LEVELS OF OTHER SERUM ENZYMES Status: Resolved Comment: Demand ishcemia with infection. Type II. (6) Acute metabolic encephalopathy Code(s): G93.41 - METABOLIC ENCEPHALOPATHY Status: Resolved Comment: Secondary to infection. (7) Parastomal hernia Code(s): K43.5 - PARASTOMAL HERNIA WITHOUT OBSTRUCTION OR GANGRENE Status: Acute (8) Parastomal ulcer Code(s): KEE6491 - Status: Acute (9) Acute respiratory failure with hypoxia Code(s): J96.01 - ACUTE RESPIRATORY FAILURE WITH HYPOXIA Status: Resolved (10) Pneumonia Code(s): J18.9 - PNEUMONIA, UNSPECIFIED ORGANISM Status: Acute - Plan * Colitis symptoms appear to be improved. * Had hypoxia overnight. * CXR shows concern for early infiltrate. * Continue Zosyn. * Supplemental oxygen. * Dietary supplementation. Patient reports she does not like them but will try to use them. * Continue stoma care.
[2018-12-05] MEDS: Acetaminophen 500 MG TAB PO PRN (18:06)
[2018-12-05] MEDS: Rosuvastatin 20 MG TAB PO SCH (20:16)
[2018-12-06] MEDS: Piperacillin/Tazobactam 3.375 GM in Sodium Chloride 0.9% 100 ML IVPB SCH ×4 (00:10→16:03)
[2018-12-06] MEDS: Saccharomyces boulardii 250 MG CAP PO SCH (08:45)
[2018-12-06] MEDS: Amiodarone 200 MG TAB PO SCH ×2 (08:45→20:34)
--- NOTE | 2018-12-06 08:46 | PDOC.PN ---
- Subjective Encounter Start Date: 12/06/18 Encounter Start Time: 08:44 Says she is still having problems with her breathing. "Feel like I'm dying". Only ate half of her breakfast yesterday and nothing else. Will not drink shakes. - Objective Resuscitation Status - Order Detail: 12/02/18 19:46 Resuscitation Status Routine Resuscitation Status: DNAR: NO Resuscitation Discussed with: discussed with brother BALJEET Vital Signs & Weight: Vital Signs (12 hours) Temp Pulse Resp BP Pulse Ox 12/06/18 07:51 98.0 F 77 16 147/77 H 96 Weight Admit Weight 115 lb Weight 115 lb I&O: 12/05/18 12/06/18 12/07/18 06:59 06:59 06:59 Intake Total 1371 984 Output Total 25 400 Balance 1346 584 Result Diagrams: 12/05/18 06:06 12/05/18 06:06 Phys Exam - Physical Examination Constitutional: NAD Scattered wheezes, rales in both bases. Cardiovascular: RRR, no significant murmur, no rub Gastrointestinal: soft, non-tender, no distention, positive bowel sounds Musculoskeletal: no edema Dx/Plan (1) Colitis Code(s): K52.9 - NONINFECTIVE GASTROENTERITIS AND COLITIS, UNSPECIFIED Status : Acute (2) Dementia Code(s): F03.90 - UNSPECIFIED DEMENTIA WITHOUT BEHAVIORAL DISTURBANCE Status: Chronic (3) HLD (hyperlipidemia) Code(s): E78.5 - HYPERLIPIDEMIA, UNSPECIFIED Status: Chronic (4) HTN (hypertension) Code(s): I10 - ESSENTIAL (PRIMARY) HYPERTENSION Status: Chronic (5) Elevated troponin Code(s): R74.8 - ABNORMAL LEVELS OF OTHER SERUM ENZYMES Status: Resolved Comment: Demand ishcemia with infection. Type II. (6) Acute metabolic encephalopathy Code(s): G93.41 - METABOLIC ENCEPHALOPATHY Status: Resolved Comment: Secondary to infection. (7) Parastomal hernia Code(s): K43.5 - PARASTOMAL HERNIA WITHOUT OBSTRUCTION OR GANGRENE Status: Acute (8) Parastomal ulcer Code(s): NKS9402 - Status: Acute (9) Acute respiratory failure with hypoxia Code(s): J96.01 - ACUTE RESPIRATORY FAILURE WITH HYPOXIA Status: Resolved (10) Pneumonia Code(s): J18.9 - PNEUMONIA, UNSPECIFIED ORGANISM Status: Acute - Plan * CXR concerning for pneumonia. Repeat CXR. Lungs sound a little worse today. Add Cefepime. * Encouraged po intake. Recommend to nurse that we switch to the chocolate milk as recommended by Continuous Improvement Director. * Continue the Zosyn for pneumonia and the colitis. Colitis symptoms appear to be much improved. * Continue wound care for the parastomal ulceration.
[2018-12-06] MEDS: Cefepime 1 GM in Sodium Chloride 0.9% 100 ML IVPB SCH ×2 (08:57→20:33)
[2018-12-06] MEDS: Polyethylene Glycol 3350 17 GM Packet PO SCH (08:58)
--- NOTE | 2018-12-06 10:41 | RAD ---
CHEST ONE VIEW: Comparison: 12-05-18 History: Pneumonia. FINDINGS: Atherosclerosis of the aorta. Enlarged cardiac silhouette. Persistent right perihilar and bilateral l ower lobe opacification. The degree of opacification left lung base has progressed since the previous examination suggesting pleural and parenchymal changes. Stable calcified granuloma in the left upper lobe. There is no pneumothorax or osseous abnormality. IMPRESSION: Worsening right and left lower lobe opacification suggesting progression of pleural effusion and reshma cent parenchymal changes. Continued surveillance is recommended. POS: LOUISE
[2018-12-06] MEDS: Albuterol Sulfate 1.25 MG/3 ML NEB NEB PRN (11:28)
[2018-12-06] MEDS ORDERED: Furosemide 20 MG/2 ML VIAL SLOW IVP SCH (13:15)
[2018-12-06] MEDS: Furosemide 40 MG/4 ML VIAL ONE ×2 (13:39→13:40)
--- NOTE | 2018-12-06 14:39 | ULT ---
ULTRASOUND WITH DOPPLER DUPLEX VENOUS LOWER EXTREMITIES BILATERAL: DATE: 12-06-18 HISTORY: 88-year-old female with bilateral lower extremity swelling, left worse than right. The dock operations supervisor, Nadine Yates has documented that she reported the positive finding of DVT to nurse Ghazala agee. TECHNIQUE: Color flow Doppler, spectral waveform analysis of pulsed Doppler, and liu-scale imaging with divine yuriy and augmentation, were used to evaluate the bilateral common femoral, femoral, popliteal, deputy sheriff chief ior tibial, and superficial femoral, veins; and the proximal portions of the profunda femoral and gre ater saphenous, veins. FINDINGS: There is partial compressibility of the distal portion of the right femoral vein, consistent with non occlusive DVT. There is a small focal intermediate echogenicity mass occupying a portion of the lumen of the proxima l portion of the left femoral vein that causes incomplete compressibility. There is blood flow around this. This may be chronic. There is noncompressibility and lack of blood flow in the left profunda femoral vein. There is soft tissue edema in the bilateral legs, left greater than right. IMPRESSION: 1. Positive for acute, occlusive deep vein thrombosis of the left profunda femoral vein. 2. Probable deep vein thrombosis, probably acute, partial and nonocclusive, of distal portion of righ t femoral vein. 3. Small focus of deep vein thrombosis, partial and nonocclusive, in proximal portion of left femoral vein, probably chronic. Code CR JN R POS: TPC
--- NOTE | 2018-12-06 15:10 | CT ---
CTA OF THE CHEST WITH CONTRAST: COMPARISON: None. HISTORY: Shortness of breath. History of DVT. TECHNIQUE: Multiple contiguous axial images were obtained in a CTA of the chest with contrast per pulmonary embo lism protocol. Three-D oblique MIP reformats and direct coronal reformats were performed. FINDINGS: The pulmonary arteries are well opacified without filling defects to suggest pulmonary emboli. The h eart is normal in size without focal cardiac abnormality. No hilar or mediastinal lymphadenopathy ar e seen. A calcified granuloma is seen in the left upper lobe. A calcified left hilar lymph node is also seen . There are small bilateral pleural effusions with adjacent atelectasis. Ground-glass attenuation i s seen in the right upper lobe which may represent atelectasis or an infiltrate. Degenerative changes are seen in the spine. Diffuse soft tissue anasarca is seen. There is a 2.2 cm right renal cyst. The other visualized subdiaphragmatic structures are unremarkable. The gallbladd er has been removed. IMPRESSION: 1. No evidence of pulmonary thromboembolism. 2. Bilateral pleural effusions with adjacent atelectasis. 3. Possible right upper lobe infiltrate. 4. Right renal cyst. POS: C
--- NOTE | 2018-12-06 15:16 | PDOC.GSPN ---
Surgery Progress Note: Subj - Subjective Narrative: Patient denies abdominal pain or nausea. She did eat a little bit of her breakfast. The nurse documented that she ate 50% of her meal and drank both of her drinks. Her main complaint this morning is that she had a lot of problems breathing last night and that she feels like her room is too hot. She feels like she is breathing a little better now. Her chest x-ray showed a possible infiltrate and she has been placed on increased O2 by nasal cannula. Her abdomen is nontender. Her colostomy appears healthy and there is liquid and soft stool in the bag and gas. The patient told me she is having problems with diarrhea and blood in her stool and having to run to the bathroom after eating. She said that it has been going on for a few months now, and that it has happened several times in the hospital. However, her nurses tell me that she has only been out of bed with physical therapy and then only to stand by the side of the bed. The to me that she has been in brief some has not had any bowel movements, and I think the patient is reporting an episode from some time ago. She has never before reported to me passing stool per rectum since her operation, and I think she is getting confused. I don't know if this is simply worsening dementia or if she might be a little delirious from pneumonia. I wonder if part of her decreased oral intake is due to her worsening dementia, and silent aspiration. I have asked each therapy to evaluate her. If she does not appear to be swallowing safely, I would recommend getting palliative care involved to discuss goals of care. She continues to be a poor surgical candidate , but there is no immediate indication for general surgery intervention for her colitis as this appears to be resolving on antibiotics. I care team to call me And the change her colostomy appliance, but hopefully we can manage her peristomal erosions with appropriate wound care. Surgery Progress Note: Obj - Vital signs Vital signs: Vital Signs - Most Recent Temp Pulse Resp BP Pulse Ox 98.3 F 82 22 H 147/81 H 94 L 12/06/18 11:22 12/06/18 11:28 12/06/18 11:28 12/06/18 11:22 12/06/18 11:28 Surgery Progress Note: Results - Labs Result Diagrams: 12/05/18 06:06 12/05/18 06:06
[2018-12-06] MEDS ORDERED: ISOVUE-370 76%-LOCM 1 ML ONE (16:41)
[2018-12-06] MEDS: Enoxaparin Sodium 60 MG/0.6 ML SYRINGE SC SCH (20:33)
[2018-12-06] MEDS: Rosuvastatin 20 MG TAB PO SCH (20:34)
--- NOTE | 2018-12-06 21:28 | PDOC.EVN ---
Event Note - Event Note Event Note: Edema noted in the patient's legs. 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 Given the SOB symptoms, CTA chest was performed. No PE. Started on Lovenox. Had not had prior Lovenox with concerns for possible surgical interventions. There are no plans for surgery at this point. Can change to Eliquis tomorrow if tolerating the anticoagulation. Patient reports that she was aware of a blood clot in her leg from two years ago. CT did show large pleural effusion and probable right upper lobe infiltrate. Had a dose of diuretic today. Needs continued diuresis.
[2018-12-07] MEDS: Piperacillin/Tazobactam 3.375 GM in Sodium Chloride 0.9% 100 ML IVPB SCH ×5 (00:07→23:37)
[2018-12-07] MEDS: Acetaminophen 500 MG TAB PO PRN (00:11)
[2018-12-07] MEDS: Albuterol Sulfate 1.25 MG/3 ML NEB NEB PRN (00:15)
[2018-12-07 05:41] LABS: #Eosinphils 0.3 thou/uL (0.0-0.7); #Lymphocytes 2.3 thou/uL (1.20-3.40); #Neutrophils 6.4 thou/uL (1.40-6.50); %Basophils 0.1 % (0.0-1.0); %Eosinophils 2.6 % (0.0-10.0); %Lymphocytes 22.9 % (21.0-51.0); %Neutrophils 64.3 % (42.0-75.0); Hemoglobin 10.4 g/dL (12.0-16.0); Mean Corpuscular HGB CONC 31.3 g/dL (32.0-36.0); Mean Corpuscular Volume 95.7 fL (78.0-98.0); Mean Platelet Volume 8.2 fL (7.4-10.4); Platelet Count 298 thou/uL (130-400); RBC Distribution Width 13.2 % (11.5-14.5); Red Blood Cell (RBC) Count 3.46 mill/uL (4.20-5.40); White Blood Cell (WBC) Count 9.9 thou/uL (4.8-10.8)
[2018-12-07 05:57] LABS: Anion Gap 7 mmol/L (10-20); BUN (Urea Nitrogen) 7 mg/dL (9.8-20.1); Calc. Creatinine Clearance 41 mL/min (70-130); Calcium 8.2 mg/dL (7.8-10.44); Carbon Dioxide 29 mmol/L (23-31); Chloride 105 mmol/L (98-107); Estimated GFR-MDRD 69; Glucose 91 mg/dL (83-110); Potassium 3.8 mmol/L (3.5-5.1); Sodium 137 mmol/L (136-145)
[2018-12-07] MEDS: Cefepime 1 GM in Sodium Chloride 0.9% 100 ML IVPB SCH (09:55)
[2018-12-07] MEDS: Enoxaparin Sodium 60 MG/0.6 ML SYRINGE SC SCH ×2 (09:55→21:40)
[2018-12-07] MEDS: Saccharomyces boulardii 250 MG CAP PO SCH (09:55)
[2018-12-07] MEDS: Polyethylene Glycol 3350 17 GM Packet PO SCH (09:55)
[2018-12-07] MEDS: Furosemide 20 MG/2 ML VIAL SLOW IVP SCH (09:56)
[2018-12-07] MEDS: Amiodarone 200 MG TAB PO SCH ×2 (09:56→21:40)
--- NOTE | 2018-12-07 11:45 | PRG ---
DATE OF SERVICE: 12/07/2018 SUBJECTIVE: The patient was seen and examined at bedside. Denies any new complaints. No abdominal pain reported. Appetite slowly improving. No fever, chills, nausea, or vomiting. REVIEW OF SYSTEMS: The patient denies any chest pain, shortness of breath, or palpitations. OBJECTIVE: VITAL SIGNS: Temperature 97.4, pulse rate of 67, respirations of 18, blood pressure 125/61, O2 saturation 95% on 3 L nasal cannula. Intake of 1598, output 1700. GENERAL: An 88-year-old female, in no apparent distress. LUNGS: Show diminished air entry at bases with scattered rales. HEART: S1 and S2 present. No significant murmurs. ABDOMEN: Soft, liquid stool in the colostomy bag. EXTREMITIES: Left lower extremity swollen with minimal calf tenderness. CURRENT MEDICATIONS: Current medications were reviewed. The patient is on: 1. Cefepime. 2. Zosyn. 3. Amiodarone. 4. Lovenox. 5. Protonix. 6. IV Lasix. 7. MiraLAX. 8. Crestor. 9. Florastor. 10. Zoloft. CURRENT CODE STATUS: Do not resuscitate. LABORATORY FINDINGS: WBC 9.9 with hemoglobin 10.4, hematocrit 33.1 with platelets 298. Chemistry showed sodium 137, potassium 3.8, chloride 105, bicarb 29, BUN 7, creatinine 0.79, prealbumin 7.0. Blood cultures, negative. Influenza testing, negative on admission. Urine cultures have been negative. CT angiogram of the chest yesterday showed bilateral pleural effusion with adjacent atelectasis with possible right upper lobe infiltrate. Bilateral lower extremity Doppler was positive for DVT. CT abdomen and pelvis with contrast 5 days ago showed prominent colitis involving the sigmoid colon with pericolonic abscess. IMPRESSION: 1. Sepsis with acute organ dysfunction with toxic metabolic encephalopathy secondary to sigmoid colitis with pericolonic abscess. 2. Bilateral lower extremity deep venous thrombosis, on subcutaneous Lovenox. 3. Acute hypoxic respiratory failure secondary to bilateral pleural effusion as well as healthcare-associated pneumonia, suspected aspiration. 4. Swallow dysfunction. Currently, on modified diet. 5. Elevated troponin secondary to demand ischemia. 6. Hypokalemia/hyponatremia. 7. Severe protein-calorie malnutrition. 8. Do not resuscitate. 9. Dementia. 10. Hypertension. 11. Hyperlipidemia. 12. 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 13. Renal cyst. PLAN: We will continue current medications including Zosyn. We will discontinue cefepime. We will add Flagyl for possible aspiration pneumonia. We will continue current modified diet. General Surgery is following. We will continue Lovenox for bilateral lower extremity DVT. We will continue IV Lasix for bilateral pleural effusion. We will recheck labs in a.m. We will add incentive spirometer. We will continue Ward catheter for now. Continue calorie count. Plan was discussed with the patient. She stated understanding. We will discuss the plan of care with the family when they arrive. Job ID: [id number]
[2018-12-07] MEDS: metroNIDAZOLE 500 MG in Premix Bag 1 BAG IVPB SCH ×2 (15:01→21:02)
--- NOTE | 2018-12-07 15:27 | EKG ---
Test Reason : Blood Pressure : / mmHG Vent. Rate : 077 BPM Atrial Rate : 077 BPM P-R Int : 162 ms QRS Dur : 080 ms QT Int : 418 ms P-R-T Axes : -14 042 048 degrees QTc Int : 473 ms Normal sinus rhythm No STEMI Normal ECG Confirmed by MARSHAL HENRY M.D. ([id number]), art editor OSWALDO STOLL ([id number]) on 12/07/2018 3:27:18 PM Referred By: Confirmed By:MARSHAL HENRY M.D.
--- NOTE | 2018-12-07 15:46 | PRG ---
DATE OF SERVICE: 12/07/2018 SUBJECTIVE: Ms. Owen is doing well today. She has complained about her food selections. OBJECTIVE: VITAL SIGNS: Temperature 97.5 degrees, pulse 69, blood pressure 136/66. LUNGS: Clear to auscultation. HEART: Regular rate and rhythm without murmur or gallop. ABDOMEN: Soft. Baseline parastomal hernia. LABORATORY DATA: Her CBC is normal. Basic met is normal. White count is 9. ASSESSMENT AND PLAN: Deconditioning, dementia, parastomal hernia. The patient is not in good condition to have any operation. From a Surgery standpoint, I think she could be started on oral antibiotics and be discharged home anytime medically fit. She can follow up with Dr. Maguire in the next few weeks for further discussion of colostomy issues. Job ID: [id number]
[2018-12-07] MEDS: Ondansetron PF 4 MG/2 ML Vial IVP PRN (20:53)
[2018-12-07] MEDS: Rosuvastatin 20 MG TAB PO SCH (21:40)
[2018-12-08] MEDS: Albuterol Sulfate 1.25 MG/3 ML NEB NEB PRN (02:04)
[2018-12-08] MEDS: Piperacillin/Tazobactam 3.375 GM in Sodium Chloride 0.9% 100 ML IVPB SCH ×4 (05:04→20:18)
[2018-12-08] MEDS: metroNIDAZOLE 500 MG in Premix Bag 1 BAG IVPB SCH (05:48)
[2018-12-08 06:17] LABS: #Eosinphils 0.3 thou/uL (0.0-0.7); #Neutrophils 7.4 thou/uL (1.40-6.50); %Basophils 0.1 % (0.0-1.0); %Eosinophils 3.3 % (0.0-10.0); %Lymphocytes 18.5 % (21.0-51.0); %Monocytes 8.9 % (0.0-10.0); %Neutrophils 69.3 % (42.0-75.0); Hemoglobin 10.4 g/dL (12.0-16.0); Mean Corpuscular HGB CONC 30.9 g/dL (32.0-36.0); Mean Corpuscular Hemoglobin 29.9 pg (27.0-31.0); Mean Corpuscular Volume 96.5 fL (78.0-98.0); Mean Platelet Volume 8.2 fL (7.4-10.4); Platelet Count 333 thou/uL (130-400); RBC Distribution Width 13.2 % (11.5-14.5); Red Blood Cell (RBC) Count 3.48 mill/uL (4.20-5.40); White Blood Cell (WBC) Count 10.7 thou/uL (4.8-10.8)
[2018-12-08 06:36] LABS: ALT (SGPT) 50 U/L (8-55); AST (SGOT) 127 U/L (5-34); Albumin 2.3 g/dL (3.4-4.8); Alkaline Phosphatase 55 U/L (40-150); Anion Gap 10 mmol/L (10-20); BUN (Urea Nitrogen) 7 mg/dL (9.8-20.1); Bilirubin, Total 0.4 mg/dL (0.2-1.2); Calc. Creatinine Clearance 44 mL/min (70-130); Carbon Dioxide 30 mmol/L (23-31); Chloride 102 mmol/L (98-107); Estimated GFR-MDRD 76; Globulin 2.6 g/dL (2.4-3.5); Glucose 93 mg/dL (83-110); Magnesium 1.4 mg/dL (1.6-2.6); Phosphorus 2.6 mg/dL (2.3-4.7); Protein, Total 4.9 g/dL (6.0-8.3); Sodium 139 mmol/L (136-145)
[2018-12-08] MEDS ORDERED: Magnesium Sulfate 4 GM in Sodium Chloride 0.9% 250 ML 250 ML IVPB SCH (08:00)
[2018-12-08] MEDS: Saccharomyces boulardii 250 MG CAP PO SCH (08:37)
[2018-12-08] MEDS: Amiodarone 200 MG TAB PO SCH ×2 (08:37→20:18)
[2018-12-08] MEDS: Enoxaparin Sodium 60 MG/0.6 ML SYRINGE SC SCH ×2 (08:37→20:17)
[2018-12-08] MEDS: Furosemide 20 MG/2 ML VIAL SLOW IVP SCH (08:37)
[2018-12-08] MEDS: Polyethylene Glycol 3350 17 GM Packet PO SCH (08:39)
[2018-12-08] MEDS: Ondansetron PF 4 MG/2 ML Vial IVP PRN ×2 (13:22→20:21)
[2018-12-08] MEDS: Fluticasone Propionate Nasal Spray 16 gm Bottle NASAL SCH (15:08)
[2018-12-08] MEDS ORDERED: metroNIDAZOLE 500 MG in Premix Bag 1 BAG IVPB SCH (16:00)
[2018-12-08] MEDS: Rosuvastatin 20 MG TAB PO SCH (20:18)
[2018-12-08] MEDS ORDERED: WARFARIN PO PRN (21:45)
--- NOTE | 2018-12-08 21:59 | PDOC.PN ---
- Subjective Encounter Start Date: 12/08/18 Encounter Start Time: 13:30 Patient seen and examined for multiple issues. Dry cough+. No fever/chills. No new complaints. No overnight events - Objective Resuscitation Status - Order Detail: 12/02/18 19:46 Resuscitation Status Routine Resuscitation Status: DNAR: NO Resuscitation Discussed with: discussed with brother BALJEET CONTRERAS Reviewed: Yes Vital Signs & Weight: Vital Signs (12 hours) Temp Pulse Resp BP Pulse Ox 12/08/18 17:21 98.1 F 72 16 135/75 97 12/08/18 11:29 98.1 F 77 16 95 Weight Admit Weight 115 lb Weight 115 lb I&O: 12/07/18 12/08/18 12/09/18 06:59 06:59 06:59 Intake Total 1598 1159 240 Output Total 1700 7081 1700 Balance -102 -7206 -1378 Result Diagrams: 12/08/18 05:23 12/08/18 05:23 Phys Exam - Physical Examination Constitutional: NAD Respiratory: no wheezing Scat rales with few rhonchi Cardiovascular: RRR, no rub Gastrointestinal: soft, non-tender, positive bowel sounds Musculoskeletal: no edema Neurological: moves all 4 limbs Dx/Plan - Plan DVT proph w/lovenox, DVT proph w/SCDs IMPRESSION: 1. Sepsis with acute organ dysfunction with toxic metabolic encephalopathy secondary to sigmoid colitis with pericolonic abscess. 2. Bilateral lower extremity deep venous thrombosis, on subcutaneous Lovenox. 3. Acute hypoxic respiratory failure secondary to bilateral pleural effusion as well as healthcare-associated pneumonia, suspected aspiration. 4. Swallow dysfunction - on modified diet. 5. Elevated troponin secondary to demand ischemia. 6. Hypokalemia/hyponatremia/hypomagnesemia 7. Severe protein-calorie malnutrition. 8. Do not resuscitate. 9. Dementia. 10. Hypertension. 11. Hyperlipidemia. 12. 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 13. Renal cyst. PLAN: Replace Magnessium Reduce Lovenox dose to 40 mg BID - DC Lovenox when INR >= 2 Start Warfarin Change Atbx to PO Cont other meds as below Laboratory Tests 12/08/18 05:23 Magnesium 1.4 L Review of Systems - Review of Systems Respiratory: Cough, Dry. negative: Shortness of Breath, Hemoptysis, SOB with Excertion, Pleuritic Pain, Sputum, Wheezing Cardiovascular: negative: chest pain, palpitations, orthopnea, paroxysmal nocturnal dyspnea, edema, light headedness, other - Medications/Allergies Allergies/Adverse Reactions: Allergies Allergy/AdvReac Type Severity Reaction Status Date / Time No Known Drug Allergies Allergy Verified 01/29/17 19:48 Medications: Current Medications Acetaminophen (Tylenol) 500 mg PO Q4H PRN PRN Reason: Headache/Fever or Pain Last Admin: 12/07/18 00:11 Dose: 500 mg Albuterol Sulfate (Albuterol Sulfate) 1.25 mg NEB [id number] PRN PRN Reason: Wheezing Last Admin: 12/08/18 02:04 Dose: 1.25 mg Amiodarone HCl (Cordarone) [address] [facility] Last Admin: 12/08/18 20:18 Dose: 400 mg Amoxicillin/Clavulanate Potassium (Augmentin 400mg/5ml Oral Susp) [address] [facility] Bisacodyl (Dulcolax) 10 mg PO DAILYPRN PRN PRN Reason: Constipation Calcium Carbonate (Tums) 1,000 mg PO Q4H PRN PRN Reason: Heartburn or Indigestion Enoxaparin Sodium (Lovenox) 40 mg SC 0900,2100 [facility] Fluticasone Propionate (Flonase Nasal [place]) [address] [facility] Last Admin: 12/08/18 15:08 Dose: 2 sprays Furosemide (Lasix) [address] [facility] Last Admin: 12/08/18 08:37 Dose: 20 mg Metronidazole (Flagyl) [address] [facility] Miscellaneous Medication (Phos-Nak) [address] [facility] Last Admin: 12/08/18 20:18 Dose: 1 pkt Miscellaneous Medication (Pharmacy To Dose) [address] [facility] Ondansetron HCl (Zofran) 4 mg IVP Q6H PRN PRN Reason: Nausea/Vomiting Last Admin: 12/08/18 20:21 Dose: 4 mg Pantoprazole Sodium (Protonix) [address] [facility] Last Admin: 12/08/18 08:37 Dose: 40 mg Polyethylene Glycol (Miralax) [address] [facility] Last Admin: 12/08/18 08:39 Dose: 17 gm Rosuvastatin Calcium (Crestor) [address] [facility] Last Admin: 12/08/18 20:18 Dose: 40 mg Saccharomyces Boulardii (Florastor) [address] [facility] Last Admin: 12/08/18 08:37 Dose: 250 mg Senna (Senokot) 2 tab PO HSPRN PRN PRN Reason: Constipation Sertraline HCl (Zoloft) [address] [facility] Last Admin: 12/08/18 08:37 Dose: 50 mg Sodium Chloride (Flush - Normal Saline) [address] [facility] Last Admin: 12/08/18 20:18 Dose: Not Given Sodium Chloride (Flush - Normal Saline) 10 ml IVF PRN PRN PRN Reason: Saline Flush Warfarin Sodium (Coumadin) 4 mg PO 1700 [facility]
[2018-12-09 06:20] LABS: #Eosinphils 0.5 thou/uL (0.0-0.7); #Monocytes 0.8 thou/uL (0.11-0.59); #Neutrophils 6.7 thou/uL (1.40-6.50); %Basophils 0.5 % (0.0-1.0); %Lymphocytes 19.8 % (21.0-51.0); %Monocytes 7.5 % (0.0-10.0); %Neutrophils 67.2 % (42.0-75.0); Hemoglobin 10.9 g/dL (12.0-16.0); Mean Corpuscular HGB CONC 31.5 g/dL (32.0-36.0); Mean Corpuscular Hemoglobin 30.6 pg (27.0-31.0); Mean Corpuscular Volume 97.3 fL (78.0-98.0); Mean Platelet Volume 8.2 fL (7.4-10.4); Platelet Count 369 thou/uL (130-400); RBC Distribution Width 13.3 % (11.5-14.5); Red Blood Cell (RBC) Count 3.56 mill/uL (4.20-5.40); White Blood Cell (WBC) Count 9.9 thou/uL (4.8-10.8)
[2018-12-09 06:22] LABS: INR-International Normal Ratio 1.4; Prothrombin Time 17.6 SEC (12.0-14.7)
[2018-12-09 06:40] LABS: ALT (SGPT) 59 U/L (8-55); AST (SGOT) 146 U/L (5-34); Albumin 2.4 g/dL (3.4-4.8); Alkaline Phosphatase 61 U/L (40-150); Anion Gap 10 mmol/L (10-20); BUN (Urea Nitrogen) 6 mg/dL (9.8-20.1); Bilirubin, Total 0.4 mg/dL (0.2-1.2); Calc. Creatinine Clearance 44 mL/min (70-130); Calcium 7.8 mg/dL (7.8-10.44); Carbon Dioxide 32 mmol/L (23-31); Chloride 101 mmol/L (98-107); Estimated GFR-MDRD 75; Globulin 2.6 g/dL (2.4-3.5); Glucose 98 mg/dL (83-110); Magnesium 2.2 mg/dL (1.6-2.6); Phosphorus 2.3 mg/dL (2.3-4.7); Sodium 140 mmol/L (136-145)
[2018-12-09 06:43] LABS: Potassium 2.6 mmol/L (3.5-5.1)
[2018-12-09] MEDS: Potassium Chloride 20 MEQ in Premix Bag 1 BAG IVPB SCH ×2 (09:20→10:41)
[2018-12-09] MEDS: Enoxaparin Sodium 40 MG/0.4 ML SYRINGE SC SCH ×2 (09:21→21:21)
[2018-12-09] MEDS: Amoxicillin/Potassium Clav 400 mg/5 ml Oral Suspension PO SCH ×2 (09:21→21:22)
[2018-12-09] MEDS: Furosemide 20 MG/2 ML VIAL SLOW IVP SCH (09:22)
[2018-12-09] MEDS: Amiodarone 200 MG TAB PO SCH ×2 (09:22→21:20)
[2018-12-09] MEDS: Saccharomyces boulardii 250 MG CAP PO SCH (09:22)
[2018-12-09] MEDS: Polyethylene Glycol 3350 17 GM Packet PO SCH (09:22)
[2018-12-09] MEDS: metroNIDAZOLE 250 MG TAB PO SCH ×2 (09:22→15:14)
[2018-12-09] MEDS: Fluticasone Propionate Nasal Spray 16 gm Bottle NASAL SCH (13:37)
[2018-12-09] MEDS: Ondansetron PF 4 MG/2 ML Vial IVP PRN (13:43)
[2018-12-09] MEDS ORDERED: Potassium Chloride 40 MEQ in Sodium Chloride 0.9% 250 ML 250 ML IVPB SCH (15:30)
[2018-12-09] MEDS: metroNIDAZOLE 500 MG in Premix Bag 1 BAG IVPB SCH (15:55)
[2018-12-09] MEDS: Warfarin Sodium 2 MG TAB PO SCH (15:56)
[2018-12-09] MEDS: Rosuvastatin 20 MG TAB PO SCH (21:21)
--- NOTE | 2018-12-09 21:55 | PDOC.PN ---
- Subjective Encounter Start Date: 12/09/18 Encounter Start Time: 16:00 Patient seen and examined for Colitis. Some nausea +. No new complaints. No overnight events - Objective Resuscitation Status - Order Detail: 12/02/18 19:46 Resuscitation Status Routine Resuscitation Status: DNAR: NO Resuscitation Discussed with: discussed with brother BALJEET CONTRERAS Reviewed: Yes Vital Signs & Weight: Vital Signs (12 hours) Temp Pulse Resp BP Pulse Ox 12/09/18 20:00 98.0 F 75 20 134/66 97 Weight Admit Weight 115 lb Weight 115 lb I&O: 12/08/18 12/09/18 12/10/18 06:59 06:59 06:59 Intake Total 5877 279 9057 Output Total 5245 3908 680 Balance -3956 -5586 460 Result Diagrams: 12/10/18 07:13 12/10/18 07:13 Additional Labs: Laboratory Tests 12/08/18 12/09/18 05:23 04:16 Potassium 2.6 L* Magnesium 1.4 L Phys Exam - Physical Examination Constitutional: NAD Respiratory: no wheezing, no rhonchi Cardiovascular: RRR, no rub Gastrointestinal: soft, positive bowel sounds Musculoskeletal: no edema Neurological: moves all 4 limbs Dx/Plan - Plan DVT proph w/lovenox IMPRESSION: 1. Sepsis with acute organ dysfunction with toxic metabolic encephalopathy secondary to sigmoid colitis with pericolonic abscess. 2. Bilateral lower extremity deep venous thrombosis, on subcutaneous Lovenox. 3. Acute hypoxic respiratory failure secondary to bilateral pleural effusion as well as healthcare-associated pneumonia, suspected aspiration. 4. Swallow dysfunction - on modified diet. 5. Elevated troponin secondary to demand ischemia. 6. Hypokalemia/hyponatremia/hypomagnesemia 7. Severe protein-calorie malnutrition. 8. Do not resuscitate. 9. Dementia. 10. Hypertension. 11. Hyperlipidemia. 12. 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 13. Renal cyst. PLAN: Cont Lovenox with Warfarin Monitor INR daily Cont PO Augmentin Replace electrolytes Change Flagyl to back to IV since she has nausea Cont other meds as below Review of Systems - Review of Systems Respiratory: negative: Cough, Dry, Shortness of Breath, Hemoptysis, SOB with Excertion, Pleuritic Pain, Sputum, Wheezing Cardiovascular: negative: chest pain, palpitations, orthopnea, paroxysmal nocturnal dyspnea, edema, light headedness, other - Medications/Allergies Allergies/Adverse Reactions: Allergies Allergy/AdvReac Type Severity Reaction Status Date / Time No Known Drug Allergies Allergy Verified 01/29/17 19:48 Medications: Current Medications Acetaminophen (Tylenol) 500 mg PO Q4H PRN PRN Reason: Headache/Fever or Pain Last Admin: 12/07/18 00:11 Dose: 500 mg Albuterol Sulfate (Albuterol Sulfate) 1.25 mg NEB [id number] PRN PRN Reason: Wheezing Last Admin: 12/08/18 02:04 Dose: 1.25 mg Amiodarone HCl (Cordarone) 400 mg PO BID [facility] Last Admin: 12/09/18 21:20 Dose: 400 mg Amoxicillin/Clavulanate Potassium (Augmentin 400mg/5ml Oral Susp) 400 mg PO BID [facility] Last Admin: 12/09/18 21:22 Dose: 400 mg Bisacodyl (Dulcolax) 10 mg PO DAILYPRN PRN PRN Reason: Constipation Calcium Carbonate (Tums) 1,000 mg PO Q4H PRN PRN Reason: Heartburn or Indigestion Enoxaparin Sodium (Lovenox) 40 mg SC 0900,2100 [facility] Last Admin: 12/09/18 21:21 Dose: 40 mg Fluticasone Propionate (Flonase Nasal [place]) 0 gm NASAL Q24H [facility] Last Admin: 12/09/18 13:37 Dose: 2 sprays Metronidazole 500 mg/ Device 100 mls @ 100 mls/hr IVPB 0800,1600,2359 [facility] Last Admin: 12/09/18 15:55 Dose: 100 mls Miscellaneous Medication (Pharmacy To Dose) 1 each PO .WARFARIN PRN PRN Reason: Pharmacy to dose Ondansetron HCl (Zofran) 4 mg IVP Q6H PRN PRN Reason: Nausea/Vomiting Last Admin: 12/09/18 13:43 Dose: 4 mg Pantoprazole Sodium (Protonix) 40 mg PO DAILY [facility] Last Admin: 12/09/18 09:22 Dose: 40 mg Polyethylene Glycol (Miralax) 17 gm PO DAILY [facility] Last Admin: 12/09/18 09:22 Dose: 17 gm Rosuvastatin Calcium (Crestor) 40 mg PO HS [facility] Last Admin: 12/09/18 21:21 Dose: 40 mg Saccharomyces Boulardii (Florastor) 250 mg PO DAILY [facility] Last Admin: 12/09/18 09:22 Dose: 250 mg Senna (Senokot) 2 tab PO HSPRN PRN PRN Reason: Constipation Sertraline HCl (Zoloft) 50 mg PO DAILY [facility] Last Admin: 12/09/18 09:22 Dose: 50 mg Sodium Chloride (Flush - Normal Saline) 10 ml IVF Q12HR [facility] Last Admin: 12/09/18 09:23 Dose: 10 ml Sodium Chloride (Flush - Normal Saline) 10 ml IVF PRN PRN PRN Reason: Saline Flush Warfarin Sodium (Coumadin) 4 mg PO 1700 [facility] Last Admin: 12/09/18 15:56 Dose: 4 mg
[2018-12-09] MEDS: Albuterol Sulfate 1.25 MG/3 ML NEB NEB PRN (22:12)
--- NOTE | 2018-12-09 22:53 | PDOC.GSPN ---
Surgery Progress Note: Subj - Subjective Narrative: Complaining of nausea today. Peristomal wounds look better. Abdomen nontender. 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 BM in diaper documented by nurse, pt unable to confirm or describe. A/P) Colitis improving symptomarically. Pt should have little to no stool per rectum, especially given her stricture, so if she is accurate in reporting stool per rectum, this is concerning for fistula or other process, although I saw no evidence for this on CT. Will try to clarify with nurse whether pt had stool or just mucus. Otherwise no surgical concerns. Surgery Progress Note: Obj - Vital signs Vital signs: Vital Signs - Most Recent Temp Pulse Resp BP Pulse Ox 98.0 F 74 18 134/66 97 12/09/18 20:00 12/09/18 22:12 12/09/18 22:12 12/09/18 20:00 12/09/18 22:12 Surgery Progress Note: Results - Labs Result Diagrams: 12/09/18 04:16 12/09/18 04:16
[2018-12-10] MEDS: metroNIDAZOLE 500 MG in Premix Bag 1 BAG IVPB SCH ×4 (00:45→23:56)
[2018-12-10 07:41] LABS: #Basophils 0.1 thou/uL (0.0-0.2); #Eosinphils 0.3 thou/uL (0.0-0.7); #Lymphocytes 2.6 thou/uL (1.20-3.40); #Monocytes 0.8 thou/uL (0.11-0.59); #Neutrophils 6.7 thou/uL (1.40-6.50); %Basophils 0.6 % (0.0-1.0); %Lymphocytes 24.7 % (21.0-51.0); %Monocytes 7.5 % (0.0-10.0); %Neutrophils 64.2 % (42.0-75.0); Hemoglobin 11.2 g/dL (12.0-16.0); Mean Corpuscular HGB CONC 30.4 g/dL (32.0-36.0); Mean Corpuscular Hemoglobin 29.4 pg (27.0-31.0); Mean Corpuscular Volume 96.7 fL (78.0-98.0); Mean Platelet Volume 8.1 fL (7.4-10.4); Platelet Count 405 thou/uL (130-400); RBC Distribution Width 13.4 % (11.5-14.5); Red Blood Cell (RBC) Count 3.81 mill/uL (4.20-5.40); White Blood Cell (WBC) Count 10.5 thou/uL (4.8-10.8)
[2018-12-10 07:46] LABS: INR-International Normal Ratio 1.6; Prothrombin Time 18.9 SEC (12.0-14.7)
[2018-12-10 08:18] LABS: ALT (SGPT) 65 U/L (8-55); AST (SGOT) 184 U/L (5-34); Albumin 2.4 g/dL (3.4-4.8); Alkaline Phosphatase 75 U/L (40-150); Anion Gap 9 mmol/L (10-20); BUN (Urea Nitrogen) 6 mg/dL (9.8-20.1); Bilirubin, Total 0.3 mg/dL (0.2-1.2); Calc. Creatinine Clearance 50 mL/min (70-130); Calcium 8.1 mg/dL (7.8-10.44); Carbon Dioxide 29 mmol/L (23-31); Chloride 103 mmol/L (98-107); Estimated GFR-MDRD 88; Globulin 2.9 g/dL (2.4-3.5); Glucose 104 mg/dL (83-110); Lipase 57 U/L (8-78); Magnesium 1.8 mg/dL (1.6-2.6); Phosphorus 1.8 mg/dL (2.3-4.7); Potassium 3.8 mmol/L (3.5-5.1); Protein, Total 5.3 g/dL (6.0-8.3); Sodium 137 mmol/L (136-145)
[2018-12-10] MEDS ORDERED: Potassium Phosphate 15 MMOL in Sodium Chloride 0.9% 250 ML 250 ML IVPB SCH (08:30)
[2018-12-10] MEDS: Enoxaparin Sodium 40 MG/0.4 ML SYRINGE SC SCH ×2 (08:31→21:04)
[2018-12-10] MEDS: Saccharomyces boulardii 250 MG CAP PO SCH (08:31)
[2018-12-10] MEDS: Amiodarone 200 MG TAB PO SCH ×2 (08:31→21:05)
[2018-12-10] MEDS: Amoxicillin/Potassium Clav 400 mg/5 ml Oral Suspension PO SCH ×2 (08:31→21:05)
[2018-12-10] MEDS: Polyethylene Glycol 3350 17 GM Packet PO SCH (08:31)
[2018-12-10] MEDS: Diabetic Tussin 200 MG/10 ML UDCUP PO PRN ×2 (08:35→21:10)
[2018-12-10] MEDS: Fluticasone Propionate Nasal Spray 16 gm Bottle NASAL SCH (13:41)
--- NOTE | 2018-12-10 14:27 | PDOC.GSPN ---
Surgery Progress Note: Subj - Subjective Narrative: Patient doesn't feel too good today. She states that she was up all night with shortness of breath and coughing. She does have a very wet sounding productive cough. She denies any abdominal pain or nausea and her nurse states that she usually eats about half her breakfast and lunch and bites of her dinner, and sips of chocolate milk between meals. She doesn't demonstrate any tenderness to palpation in her lower abdomen. Her colostomy appliance is intact. Assessment/plan: Doing well from a surgical standpoint with colitis responding to antibiotics. Respiratory status is somewhat tenuous. No new recommendations. Surgery Progress Note: Obj - Vital signs Vital signs: Vital Signs - Most Recent Temp Pulse Resp BP Pulse Ox 97.2 F L 73 20 145/65 H 93 L 12/10/18 08:00 12/10/18 08:00 12/10/18 08:00 12/10/18 08:00 12/10/18 08:00 Surgery Progress Note: Results - Labs Result Diagrams: 12/10/18 07:13 12/10/18 07:13 Lab results: Laboratory Results - last 24 hr 12/10/18 12/10/18 12/10/18 07:13 07:13 07:13 WBC 10.5 RBC 3.81 L Hgb 11.2 L Hct 36.8 MCV 96.7 MCH 29.4 MCHC 30.4 L RDW 13.4 Plt Count 405 H MPV 8.1 Neutrophils % 64.2 Lymphocytes % 24.7 Monocytes % 7.5 Eosinophils % 3.0 Basophils % 0.6 Neutrophils # 6.7 H Lymphocytes # 2.6 Monocytes # 0.8 H Eosinophils # 0.3 Basophils # 0.1 PT 18.9 H INR 1.6 Sodium 137 Potassium 3.8 Chloride 103 Carbon Dioxide 29 Anion Gap 9 L BUN 6 L Creatinine 0.64 Estimated GFR (MDRD) 88 Glucose 104 Calcium 8.1 Phosphorus 1.8 L Magnesium 1.8 Total Bilirubin 0.3 AST 184 H ALT 65 H Alkaline Phosphatase 75 Serum Total Protein 5.3 L Albumin 2.4 L Globulin 2.9 Albumin/Globulin Ratio 0.8 L Lipase 57
[2018-12-10] MEDS: Warfarin Sodium 2 MG TAB PO SCH (17:37)
--- NOTE | 2018-12-10 20:57 | PDOC.PN ---
- Subjective Encounter Start Date: 12/10/18 Encounter Start Time: 11:30 Patient seen and examined for Sepsis/Colitis. Poor appetite. DPOA declining DHT. No new complaints. No overnight events - Objective Resuscitation Status - Order Detail: 12/02/18 19:46 Resuscitation Status Routine Resuscitation Status: DNAR: NO Resuscitation Discussed with: discussed with brother BALJEET Vital Signs & Weight: Vital Signs (12 hours) Temp Pulse Resp BP Pulse Ox 12/10/18 20:32 98 F 77 16 130/64 91 L 12/10/18 15:10 73 14 100 Weight Admit Weight 115 lb Weight 115 lb I&O: 12/09/18 12/10/18 12/11/18 06:59 06:59 06:59 Intake Total 970 1440 1720 Output Total 2075 680 410 Balance -3279 187 3419 Result Diagrams: 12/10/18 07:13 12/10/18 07:13 Phys Exam - Physical Examination Constitutional: NAD Respiratory: no wheezing, no rhonchi Cardiovascular: RRR, no rub Gastrointestinal: soft, positive bowel sounds Colostomy + Dx/Plan - Plan DVT proph w/lovenox, DVT proph w/SCDs 1. Sepsis with acute organ dysfunction with toxic metabolic encephalopathy secondary to sigmoid colitis with pericolonic abscess. 2. Bilateral lower extremity deep venous thrombosis, on subcutaneous Lovenox/ Warfarin 3. Acute hypoxic respiratory failure secondary to bilateral pleural effusion as well as HCAP, suspected aspiration. 4. Swallow dysfunction - on modified diet. 5. Elevated troponin secondary to demand ischemia. 6. Hypokalemia/hyponatremia/hypomagnesemia/hypophosphatemia 7. Severe protein-calorie malnutrition. 8. Do not resuscitate. 9. Dementia. 10. Hypertension. 11. Hyperlipidemia. 12. 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 13. Renal cyst. PLAN: Cont Lovenox with Warfarin - INR 1.6 Cont PO Augmentin/Flagyl Replace electrolytes Add Megace Restart PO Lasix Await placement Cont other meds as below Review of Systems - Review of Systems Cardiovascular: negative: chest pain, palpitations, orthopnea, paroxysmal nocturnal dyspnea, edema, light headedness, other Gastrointestinal: negative: Nausea, Vomiting, Abdominal Pain, Diarrhea, Constipation, Melena, Hematochezia, Other - Medications/Allergies Allergies/Adverse Reactions: Allergies Allergy/AdvReac Type Severity Reaction Status Date / Time No Known Drug Allergies Allergy Verified 01/29/17 19:48 Medications: Current Medications Acetaminophen (Tylenol) 500 mg PO Q4H PRN PRN Reason: Headache/Fever or Pain Last Admin: 12/07/18 00:11 Dose: 500 mg Albuterol Sulfate (Albuterol Sulfate) 1.25 mg NEB [id number] PRN PRN Reason: Wheezing Last Admin: 12/09/18 22:12 Dose: 1.25 mg Amiodarone HCl (Cordarone) 400 mg PO BID [facility] Last Admin: 12/10/18 08:31 Dose: 400 mg Amoxicillin/Clavulanate Potassium (Augmentin 400mg/5ml Oral Susp) 400 mg PO BID [facility] Last Admin: 12/10/18 08:31 Dose: 400 mg Bisacodyl (Dulcolax) 10 mg PO DAILYPRN PRN PRN Reason: Constipation Calcium Carbonate (Tums) 1,000 mg PO Q4H PRN PRN Reason: Heartburn or Indigestion Enoxaparin Sodium (Lovenox) 40 mg SC 0900,2100 [facility] Last Admin: 12/10/18 08:31 Dose: 40 mg Fluticasone Propionate (Flonase Nasal [place]) 0 gm NASAL Q24H [facility] Last Admin: 12/10/18 13:41 Dose: 2 sprays Furosemide (Lasix) 20 mg PO DAILY [facility] Guaifenesin (Robitussin Sf) 200 mg PO Q4H PRN PRN Reason: Cough Last Admin: 12/10/18 08:35 Dose: 200 mg Metronidazole 500 mg/ Device 100 mls @ 100 mls/hr IVPB 0800,1600,2359 [facility] Last Admin: 12/10/18 15:11 Dose: 100 mls Megestrol Acetate (Megace) 40 mg PO BID [facility] Miscellaneous Medication (Pharmacy To Dose) 1 each PO .WARFARIN PRN PRN Reason: Pharmacy to dose Nystatin (Mycostatin Powder) 0 gm TOP BID [facility] Ondansetron HCl (Zofran) 4 mg IVP Q6H PRN PRN Reason: Nausea/Vomiting Last Admin: 12/09/18 13:43 Dose: 4 mg Pantoprazole Sodium (Protonix) 40 mg PO DAILY [facility] Last Admin: 12/10/18 08:31 Dose: 40 mg Polyethylene Glycol (Miralax) 17 gm PO DAILY [facility] Last Admin: 12/10/18 08:31 Dose: 17 gm Rosuvastatin Calcium (Crestor) 40 mg PO HS [facility] Last Admin: 12/09/18 21:21 Dose: 40 mg Saccharomyces Boulardii (Florastor) 250 mg PO DAILY [facility] Last Admin: 12/10/18 08:31 Dose: 250 mg Senna (Senokot) 2 tab PO HSPRN PRN PRN Reason: Constipation Sertraline HCl (Zoloft) 50 mg PO DAILY [facility] Last Admin: 12/10/18 08:31 Dose: 50 mg Sodium Chloride (Flush - Normal Saline) 10 ml IVF Q12HR [facility] Last Admin: 12/10/18 08:32 Dose: 10 ml Sodium Chloride (Flush - Normal Saline) 10 ml IVF PRN PRN PRN Reason: Saline Flush Warfarin Sodium (Coumadin) 4 mg PO 1700 [facility] Last Admin: 12/10/18 17:37 Dose: 4 mg
[2018-12-10] MEDS: Megestrol Acetate 40 MG TAB PO SCH (21:04)
[2018-12-10] MEDS: Rosuvastatin 20 MG TAB PO SCH (21:04)
[2018-12-10] MEDS: Nystatin Powder 15 GM BOT TOP SCH (21:05)
[2018-12-11 05:51] LABS: #Basophils 0.1 thou/uL (0.0-0.2); #Eosinphils 0.3 thou/uL (0.0-0.7); #Lymphocytes 2.5 thou/uL (1.20-3.40); #Monocytes 0.8 thou/uL (0.11-0.59); #Neutrophils 6.4 thou/uL (1.40-6.50); %Basophils 0.7 % (0.0-1.0); %Eosinophils 3.4 % (0.0-10.0); %Lymphocytes 24.7 % (21.0-51.0); %Monocytes 7.7 % (0.0-10.0); %Neutrophils 63.5 % (42.0-75.0); Hemoglobin 11.6 g/dL (12.0-16.0); Mean Corpuscular HGB CONC 30.8 g/dL (32.0-36.0); Mean Corpuscular Hemoglobin 29.9 pg (27.0-31.0); Mean Corpuscular Volume 97.3 fL (78.0-98.0); Mean Platelet Volume 8.1 fL (7.4-10.4); Platelet Count 421 thou/uL (130-400); RBC Distribution Width 13.5 % (11.5-14.5); Red Blood Cell (RBC) Count 3.88 mill/uL (4.20-5.40); White Blood Cell (WBC) Count 10.1 thou/uL (4.8-10.8)
[2018-12-11 05:55] LABS: Prothrombin Time 22.3 SEC (12.0-14.7)
[2018-12-11 06:25] LABS: ALT (SGPT) 66 U/L (8-55); AST (SGOT) 171 U/L (5-34); Albumin 2.4 g/dL (3.4-4.8); Alkaline Phosphatase 87 U/L (40-150); Anion Gap 7 mmol/L (10-20); BUN (Urea Nitrogen) 5 mg/dL (9.8-20.1); Bilirubin, Total 0.3 mg/dL (0.2-1.2); Calc. Creatinine Clearance 51 mL/min (70-130); Calcium 8.2 mg/dL (7.8-10.44); Carbon Dioxide 32 mmol/L (23-31); Chloride 104 mmol/L (98-107); Estimated GFR-MDRD 89; Globulin 2.9 g/dL (2.4-3.5); Glucose 107 mg/dL (83-110); Magnesium 1.9 mg/dL (1.6-2.6); Phosphorus 2.3 mg/dL (2.3-4.7); Potassium 3.7 mmol/L (3.5-5.1); Protein, Total 5.3 g/dL (6.0-8.3); Sodium 139 mmol/L (136-145)
[2018-12-11] MEDS ORDERED: Potassium Chloride 20 MEQ/100 ML PREMIX BAG IVPB SCH (09:00)
[2018-12-11] MEDS ORDERED: Furosemide 20 MG TAB PO SCH (09:00)
[2018-12-11] MEDS: Enoxaparin Sodium 40 MG/0.4 ML SYRINGE SC SCH (09:13)
[2018-12-11] MEDS: Amiodarone 200 MG TAB PO SCH ×2 (09:13→20:39)
[2018-12-11] MEDS: Polyethylene Glycol 3350 17 GM Packet PO SCH ×2 (09:13→09:25)
[2018-12-11] MEDS: Megestrol Acetate 40 MG TAB PO SCH ×2 (09:13→20:39)
[2018-12-11] MEDS: Saccharomyces boulardii 250 MG CAP PO SCH (09:13)
[2018-12-11] MEDS: metroNIDAZOLE 500 MG in Premix Bag 1 BAG IVPB SCH ×2 (09:14→17:23)
[2018-12-11] MEDS: Amoxicillin/Potassium Clav 400 mg/5 ml Oral Suspension PO SCH ×2 (09:17→20:38)
[2018-12-11] MEDS: Nystatin Powder 15 GM BOT TOP SCH ×2 (09:17→20:39)
[2018-12-11] MEDS: Potassium Chloride 20 MEQ in Premix Bag 1 BAG IVPB SCH (09:53)
[2018-12-11] MEDS: Diabetic Tussin 200 MG/10 ML UDCUP PO PRN ×2 (11:32→20:38)
[2018-12-11] MEDS: Fluticasone Propionate Nasal Spray 16 gm Bottle NASAL SCH (11:33)
[2018-12-11] MEDS: Warfarin Sodium 2 MG TAB PO SCH (17:24)
[2018-12-11] MEDS: Rosuvastatin 20 MG TAB PO SCH (20:39)
--- NOTE | 2018-12-11 21:55 | PDOC.PN ---
- Subjective Encounter Start Date: 12/11/18 Encounter Start Time: 14:00 Patient seen and examined for Sepsis/Colitis. Appetite improving. No new complaints. No overnight events - Objective Resuscitation Status - Order Detail: 12/02/18 19:46 Resuscitation Status Routine Resuscitation Status: DNAR: NO Resuscitation Discussed with: discussed with brother BALJEET CONTRERAS Reviewed: Yes Vital Signs & Weight: Vital Signs (12 hours) Temp Pulse Resp BP Pulse Ox 12/11/18 20:00 97.8 F 77 20 150/66 H 94 L Weight Admit Weight 115 lb Weight 115 lb I&O: 12/10/18 12/11/18 12/12/18 06:59 06:59 06:59 Intake Total 1440 1720 650 Output Total 680 410 50 Balance 760 1310 600 Result Diagrams: 12/12/18 06:07 12/11/18 05:16 Phys Exam - Physical Examination Constitutional: NAD Respiratory: no wheezing, no rhonchi Cardiovascular: RRR, no rub Gastrointestinal: soft, positive bowel sounds Dx/Plan - Plan 1. Sepsis with acute organ dysfunction with toxic metabolic encephalopathy secondary to sigmoid colitis with pericolonic abscess. 2. Bilateral lower extremity deep venous thrombosis, on subcutaneous Lovenox/ Warfarin 3. Acute hypoxic respiratory failure secondary to bilateral pleural effusion as well as HCAP, suspected aspiration. 4. Swallow dysfunction - on modified diet. 5. Elevated troponin secondary to demand ischemia. 6. Hypokalemia/hyponatremia/hypomagnesemia/hypophosphatemia 7. Severe protein-calorie malnutrition. 8. Do not resuscitate. 9. Dementia. 10. Hypertension. 11. Hyperlipidemia. 12. 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 13. Renal cyst. PLAN: DC Lovenox - INR 2 today Cont PO Augmentin/Flagyl/Megace Await placement Cont other meds as below Review of Systems - Review of Systems Cardiovascular: negative: chest pain, palpitations, orthopnea, paroxysmal nocturnal dyspnea, edema, light headedness, other Gastrointestinal: negative: Nausea, Vomiting, Abdominal Pain, Diarrhea, Constipation, Melena, Hematochezia, Other - Medications/Allergies Allergies/Adverse Reactions: Allergies Allergy/AdvReac Type Severity Reaction Status Date / Time No Known Drug Allergies Allergy Verified 01/29/17 19:48 Medications: Current Medications Acetaminophen (Tylenol) 500 mg PO Q4H PRN PRN Reason: Headache/Fever or Pain Last Admin: 12/07/18 00:11 Dose: 500 mg Albuterol Sulfate (Albuterol Sulfate) 1.25 mg NEB [id number] PRN PRN Reason: Wheezing Last Admin: 12/09/18 22:12 Dose: 1.25 mg Amiodarone HCl (Cordarone) 400 mg PO BID [facility] Last Admin: 12/11/18 20:39 Dose: 400 mg Amoxicillin/Clavulanate Potassium (Augmentin 400mg/5ml Oral Susp) 400 mg PO BID [facility] Last Admin: 12/11/18 20:38 Dose: 400 mg Bisacodyl (Dulcolax) 10 mg PO DAILYPRN PRN PRN Reason: Constipation Calcium Carbonate (Tums) 1,000 mg PO Q4H PRN PRN Reason: Heartburn or Indigestion Fluticasone Propionate (Flonase Nasal [place]) 0 gm NASAL Q24H [facility] Last Admin: 12/11/18 11:33 Dose: 1 sprays Furosemide (Lasix) 20 mg PO DAILY [facility] Last Admin: 12/11/18 09:13 Dose: 20 mg Guaifenesin (Robitussin Sf) 200 mg PO Q4H PRN PRN Reason: Cough Last Admin: 12/11/18 20:38 Dose: 200 mg Metronidazole 500 mg/ Device 100 mls @ 100 mls/hr IVPB 0800,1600,2359 [facility] Last Admin: 12/11/18 17:23 Dose: 100 mls Potassium Chloride 20 meq/ (Device) 100 mls @ 50 mls/hr IVPB DAILY [facility] Last Admin: 12/11/18 09:53 Dose: 100 mls Megestrol Acetate (Megace) 40 mg PO BID [facility] Last Admin: 12/11/18 20:39 Dose: 40 mg Miscellaneous Medication (Pharmacy To Dose) 1 each PO .WARFARIN PRN PRN Reason: Pharmacy to dose Nystatin (Mycostatin Powder) 0 gm TOP BID [facility] Last Admin: 12/11/18 20:39 Dose: 1 applic Ondansetron HCl (Zofran) 4 mg IVP Q6H PRN PRN Reason: Nausea/Vomiting Last Admin: 12/09/18 13:43 Dose: 4 mg Pantoprazole Sodium (Protonix) 40 mg PO DAILY [facility] Last Admin: 12/11/18 09:13 Dose: 40 mg Polyethylene Glycol (Miralax) 17 gm PO DAILY [facility] Last Admin: 12/11/18 09:25 Dose: Not Given Rosuvastatin Calcium (Crestor) 40 mg PO HS [facility] Last Admin: 12/11/18 20:39 Dose: 40 mg Saccharomyces Boulardii (Florastor) 250 mg PO DAILY [facility] Last Admin: 12/11/18 09:13 Dose: 250 mg Senna (Senokot) 2 tab PO HSPRN PRN PRN Reason: Constipation Sertraline HCl (Zoloft) 50 mg PO DAILY [facility] Last Admin: 12/11/18 09:13 Dose: 50 mg Sodium Chloride (Flush - Normal Saline) 10 ml IVF Q12HR [facility] Last Admin: 12/11/18 09:17 Dose: 10 ml Sodium Chloride (Flush - Normal Saline) 10 ml IVF PRN PRN PRN Reason: Saline Flush Warfarin Sodium (Coumadin) 4 mg PO 1700 [facility] Last Admin: 12/11/18 17:24 Dose: 4 mg
[2018-12-12] MEDS: metroNIDAZOLE 500 MG in Premix Bag 1 BAG IVPB SCH ×4 (00:20→23:35)
[2018-12-12 07:06] LABS: #Eosinphils 0.4 thou/uL (0.0-0.7); #Lymphocytes 2.3 thou/uL (1.20-3.40); #Monocytes 0.8 thou/uL (0.11-0.59); %Basophils 0.4 % (0.0-1.0); %Lymphocytes 21.6 % (21.0-51.0); %Monocytes 7.7 % (0.0-10.0); %Neutrophils 66.3 % (42.0-75.0); Hemoglobin 11.3 g/dL (12.0-16.0); Mean Corpuscular HGB CONC 31.7 g/dL (32.0-36.0); Mean Corpuscular Hemoglobin 29.8 pg (27.0-31.0); Mean Corpuscular Volume 93.9 fL (78.0-98.0); Mean Platelet Volume 8.3 fL (7.4-10.4); Platelet Count 425 thou/uL (130-400); RBC Distribution Width 13.5 % (11.5-14.5); White Blood Cell (WBC) Count 10.5 thou/uL (4.8-10.8)
[2018-12-12 07:10] LABS: INR-International Normal Ratio 2.7; Prothrombin Time 28.4 SEC (12.0-14.7)
[2018-12-12] MEDS ORDERED: Furosemide 20 MG TAB PO PRN (07:15)
[2018-12-12 07:23] LABS: ALT (SGPT) 52 U/L (8-55); AST (SGOT) 108 U/L (5-34); Albumin 2.3 g/dL (3.4-4.8); Alkaline Phosphatase 82 U/L (40-150); Anion Gap 7 mmol/L (10-20); BUN (Urea Nitrogen) 6 mg/dL (9.8-20.1); Bilirubin, Total 0.3 mg/dL (0.2-1.2); Calc. Creatinine Clearance 48 mL/min (70-130); Calcium 8.2 mg/dL (7.8-10.44); Carbon Dioxide 29 mmol/L (23-31); Chloride 104 mmol/L (98-107); Estimated GFR-MDRD 83; Globulin 2.8 g/dL (2.4-3.5); Glucose 92 mg/dL (83-110); Magnesium 1.9 mg/dL (1.6-2.6); Phosphorus 2.3 mg/dL (2.3-4.7); Potassium 3.4 mmol/L (3.5-5.1); Protein, Total 5.1 g/dL (6.0-8.3); Sodium 137 mmol/L (136-145)
[2018-12-12] MEDS: Polyethylene Glycol 3350 17 GM Packet PO SCH (09:10)
[2018-12-12] MEDS: Potassium Chloride 20 MEQ in Premix Bag 1 BAG IVPB SCH (09:10)
[2018-12-12] MEDS: Amiodarone 200 MG TAB PO SCH ×2 (09:11→21:10)
[2018-12-12] MEDS: Megestrol Acetate 40 MG TAB PO SCH ×2 (09:11→21:10)
[2018-12-12] MEDS: Saccharomyces boulardii 250 MG CAP PO SCH (09:11)
[2018-12-12] MEDS: Amoxicillin/Potassium Clav 400 mg/5 ml Oral Suspension PO SCH ×2 (09:11→21:10)
[2018-12-12] MEDS: Nystatin Powder 15 GM BOT TOP SCH ×2 (09:12→21:11)
[2018-12-12] MEDS: Fluticasone Propionate Nasal Spray 16 gm Bottle NASAL SCH (14:29)
[2018-12-12] MEDS: Warfarin Sodium 3 MG TAB PO SCH (16:51)
--- NOTE | 2018-12-12 21:08 | PDOC.PN ---
- Subjective Encounter Start Date: 12/12/18 Encounter Start Time: 16:45 Patient seen and examined for Sepsis. Appetite improving. No new complaints. No overnight events - Objective Resuscitation Status - Order Detail: 12/02/18 19:46 Resuscitation Status Routine Resuscitation Status: DNAR: NO Resuscitation Discussed with: discussed with brother BALJEET CONTRERAS Reviewed: Yes Vital Signs & Weight: Vital Signs (12 hours) Temp Pulse Resp BP Pulse Ox Pulse Ox 12/12/18 20:20 97.7 F 74 16 144/69 H 94 L 12/12/18 09:44 92 L Weight Admit Weight 115 lb Weight 115 lb I&O: 12/11/18 12/12/18 12/13/18 06:59 06:59 06:59 Intake Total 3904 621 2116 Output Total 410 50 Balance 1493 447 5763 Result Diagrams: 12/12/18 06:07 12/12/18 06:07 Phys Exam - Physical Examination Constitutional: NAD Respiratory: no wheezing, no rhonchi Cardiovascular: RRR, no rub Gastrointestinal: soft, non-tender, positive bowel sounds Musculoskeletal: no edema Neurological: moves all 4 limbs Dx/Plan - Plan DVT proph w/SCDs 1. Sepsis with acute organ dysfunction with toxic metabolic encephalopathy secondary to sigmoid colitis with pericolonic abscess. 2. Bilateral lower extremity deep venous thrombosis - Warfarin 3. Acute hypoxic respiratory failure secondary to bilateral pleural effusion as well as HCAP, suspected aspiration. 4. Swallow dysfunction - on modified diet. 5. Elevated troponin secondary to demand ischemia. 6. Hypokalemia/hyponatremia/hypomagnesemia/hypophosphatemia 7. Severe protein-calorie malnutrition. 8. Do not resuscitate. 9. Dementia. 10. Hypertension. 11. Hyperlipidemia. 12. 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 13. Renal cyst. PLAN: Reduce Warfarin dose Cont PO Augmentin/Flagyl Await placement Cont other meds as below Stable for dc Review of Systems - Review of Systems Respiratory: negative: Cough, Dry, Shortness of Breath, Hemoptysis, SOB with Excertion, Pleuritic Pain, Sputum, Wheezing Cardiovascular: negative: chest pain, palpitations, orthopnea, paroxysmal nocturnal dyspnea, edema, light headedness, other - Medications/Allergies Allergies/Adverse Reactions: Allergies Allergy/AdvReac Type Severity Reaction Status Date / Time No Known Drug Allergies Allergy Verified 01/29/17 19:48 Medications: Current Medications Acetaminophen (Tylenol) 500 mg PO Q4H PRN PRN Reason: Headache/Fever or Pain Last Admin: 12/07/18 00:11 Dose: 500 mg Albuterol Sulfate (Albuterol Sulfate) 1.25 mg NEB [id number] PRN PRN Reason: Wheezing Last Admin: 12/09/18 22:12 Dose: 1.25 mg Amiodarone HCl (Cordarone) 400 mg PO BID [facility] Last Admin: 12/12/18 09:11 Dose: 400 mg Amoxicillin/Clavulanate Potassium (Augmentin 400mg/5ml Oral Susp) 400 mg PO BID [facility] Last Admin: 12/12/18 09:11 Dose: 400 mg Bisacodyl (Dulcolax) 10 mg PO DAILYPRN PRN PRN Reason: Constipation Calcium Carbonate (Tums) 1,000 mg PO Q4H PRN PRN Reason: Heartburn or Indigestion Fluticasone Propionate (Flonase Nasal [place]) 0 gm NASAL Q24H [facility] Last Admin: 12/12/18 14:29 Dose: 1 sprays Furosemide (Lasix) 20 mg PO DAILY PRN PRN Reason: Edema Guaifenesin (Robitussin Sf) 200 mg PO Q4H PRN PRN Reason: Cough Last Admin: 12/11/18 20:38 Dose: 200 mg Metronidazole 500 mg/ Device 100 mls @ 100 mls/hr IVPB 0800,1600,2359 [facility] Last Admin: 12/12/18 14:30 Dose: 100 mls Potassium Chloride 20 meq/ (Device) 100 mls @ 50 mls/hr IVPB DAILY [facility] Last Admin: 12/12/18 09:10 Dose: 100 mls Megestrol Acetate (Megace) 40 mg PO BID [facility] Last Admin: 12/12/18 09:11 Dose: 40 mg Miscellaneous Medication (Pharmacy To Dose) 1 each PO .WARFARIN PRN PRN Reason: Pharmacy to dose Nystatin (Mycostatin Powder) 0 gm TOP BID [facility] Last Admin: 12/12/18 09:12 Dose: 1 applic Ondansetron HCl (Zofran) 4 mg IVP Q6H PRN PRN Reason: Nausea/Vomiting Last Admin: 12/09/18 13:43 Dose: 4 mg Pantoprazole Sodium (Protonix) 40 mg PO DAILY [facility] Last Admin: 12/12/18 09:11 Dose: 40 mg Polyethylene Glycol (Miralax) 17 gm PO DAILY [facility] Last Admin: 12/12/18 09:10 Dose: Not Given Rosuvastatin Calcium (Crestor) 40 mg PO HS [facility] Last Admin: 12/11/18 20:39 Dose: 40 mg Saccharomyces Boulardii (Florastor) 250 mg PO DAILY [facility] Last Admin: 12/12/18 09:11 Dose: 250 mg Senna (Senokot) 2 tab PO HSPRN PRN PRN Reason: Constipation Sertraline HCl (Zoloft) 50 mg PO DAILY [facility] Last Admin: 12/12/18 09:11 Dose: 50 mg Sodium Chloride (Flush - Normal Saline) 10 ml IVF Q12HR [facility] Last Admin: 12/12/18 09:12 Dose: Not Given Sodium Chloride (Flush - Normal Saline) 10 ml IVF PRN PRN PRN Reason: Saline Flush Warfarin Sodium (Coumadin) 3 mg PO 1700 [facility] Last Admin: 12/12/18 16:51 Dose: 3 mg
[2018-12-12] MEDS: Rosuvastatin 20 MG TAB PO SCH (21:10)
[2018-12-13 07:40] LABS: INR-International Normal Ratio 3.2; Prothrombin Time 32.8 SEC (12.0-14.7)
[2018-12-13 07:56] LABS: Anion Gap 8 mmol/L (10-20); BUN (Urea Nitrogen) 7 mg/dL (9.8-20.1); Calc. Creatinine Clearance 44 mL/min (70-130); Calcium 8.6 mg/dL (7.8-10.44); Carbon Dioxide 28 mmol/L (23-31); Chloride 107 mmol/L (98-107); Estimated GFR-MDRD 76; Glucose 93 mg/dL (83-110); Potassium 5.1 mmol/L (3.5-5.1); Sodium 138 mmol/L (136-145)
[2018-12-13] MEDS: metroNIDAZOLE 500 MG in Premix Bag 1 BAG IVPB SCH ×2 (09:13→16:23)
[2018-12-13] MEDS: Saccharomyces boulardii 250 MG CAP PO SCH (09:13)
[2018-12-13] MEDS: Megestrol Acetate 40 MG TAB PO SCH ×2 (09:14→20:53)
[2018-12-13] MEDS: Amiodarone 200 MG TAB PO SCH ×2 (09:14→20:53)
[2018-12-13] MEDS: Polyethylene Glycol 3350 17 GM Packet PO SCH ×2 (09:14→11:19)
[2018-12-13] MEDS: Nystatin Powder 15 GM BOT TOP SCH ×2 (09:15→20:54)
[2018-12-13] MEDS: Furosemide 20 MG TAB PO SCH (09:19)
[2018-12-13] MEDS: Amoxicillin/Potassium Clav 400 mg/5 ml Oral Suspension PO SCH ×2 (11:18→20:53)
[2018-12-13] MEDS: Fluticasone Propionate Nasal Spray 16 gm Bottle NASAL SCH (13:52)
[2018-12-13] MEDS: Warfarin Sodium 3 MG TAB PO SCH (16:23)
[2018-12-13] MEDS: Rosuvastatin 20 MG TAB PO SCH (20:54)
[2018-12-13] MEDS: Acetaminophen 500 MG TAB PO PRN (20:54)
--- NOTE | 2018-12-13 23:12 | PDOC.PN ---
- Subjective Encounter Start Date: 12/13/18 Encounter Start Time: 11:00 Patient seen and examined for Pneumonia/Sepsis. No N/V. No new complaints. No overnight events - Objective Resuscitation Status - Order Detail: 12/02/18 19:46 Resuscitation Status Routine Resuscitation Status: DNAR: NO Resuscitation Discussed with: discussed with brother BALJEET CONTRERAS Reviewed: Yes Vital Signs & Weight: Vital Signs (12 hours) Temp Pulse Resp BP Pulse Ox 12/13/18 20:00 97.7 F 71 18 136/69 97 12/13/18 11:47 97.9 F 74 18 153/73 H 95 Weight Admit Weight 115 lb Weight 115 lb I&O: 12/12/18 12/13/18 12/14/18 06:59 06:59 06:59 Intake Total 650 1440 1020 Output Total 50 Balance 600 1440 1020 Result Diagrams: 12/12/18 06:07 12/14/18 07:19 Phys Exam - Physical Examination Constitutional: NAD Respiratory: no wheezing, no rhonchi scat rales at bases Cardiovascular: RRR, no rub Gastrointestinal: soft, non-tender, positive bowel sounds colostomy+ Musculoskeletal: no edema Neurological: moves all 4 limbs Dx/Plan - Plan 1. Sepsis with acute organ dysfunction with toxic metabolic encephalopathy secondary to sigmoid colitis with pericolonic abscess. 2. Bilateral lower extremity deep venous thrombosis - Warfarin 3. Acute hypoxic respiratory failure secondary to bilateral pleural effusion as well as HCAP, suspected aspiration. 4. Swallow dysfunction - on modified diet. 5. Elevated troponin secondary to demand ischemia. 6. Hypokalemia/hyponatremia/hypomagnesemia/hypophosphatemia 7. Severe protein-calorie malnutrition. 8. Do not resuscitate. 9. Dementia. 10. Hypertension. 11. Hyperlipidemia. 12. 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 13. Renal cyst. PLAN: Hold Warfarin Cont current Atbx Await placement Stable for discharge Cont other meds as below Review of Systems - Review of Systems Respiratory: negative: Cough, Dry, Shortness of Breath, Hemoptysis, SOB with Excertion, Pleuritic Pain, Sputum, Wheezing Cardiovascular: negative: chest pain, palpitations, orthopnea, paroxysmal nocturnal dyspnea, edema, light headedness, other - Medications/Allergies Allergies/Adverse Reactions: Allergies Allergy/AdvReac Type Severity Reaction Status Date / Time No Known Drug Allergies Allergy Verified 01/29/17 19:48 Medications: Current Medications Acetaminophen (Tylenol) 500 mg PO Q4H PRN PRN Reason: Headache/Fever or Pain Last Admin: 12/13/18 20:54 Dose: 500 mg Albuterol Sulfate (Albuterol Sulfate) 1.25 mg NEB [id number] PRN PRN Reason: Wheezing Last Admin: 12/09/18 22:12 Dose: 1.25 mg Amiodarone HCl (Cordarone) 400 mg PO BID [facility] [place] Last Admin: 12/13/18 20:53 Dose: 400 mg Amoxicillin/Clavulanate Potassium (Augmentin 400mg/5ml Oral Susp) 400 mg PO BID [facility] [place] Last Admin: 12/13/18 20:53 Dose: 400 mg Bisacodyl (Dulcolax) 10 mg PO DAILYPRN PRN PRN Reason: Constipation Calcium Carbonate (Tums) 1,000 mg PO Q4H PRN PRN Reason: Heartburn or Indigestion Fluticasone Propionate (Flonase Nasal [place]) 0 gm NASAL Q24H [facility] [place] Last Admin: 12/13/18 13:52 Dose: 1 sprays Furosemide (Lasix) 20 mg PO DAILY [facility] [place] Last Admin: 12/13/18 09:19 Dose: 20 mg Guaifenesin (Robitussin Sf) 200 mg PO Q4H PRN PRN Reason: Cough Last Admin: 12/11/18 20:38 Dose: 200 mg Metronidazole 500 mg/ Device 100 mls @ 100 mls/hr IVPB 0800,1600,2359 [facility] [place] Last Admin: 12/13/18 16:23 Dose: 100 mls Megestrol Acetate (Megace) 40 mg PO BID [facility] [place] Last Admin: 12/13/18 20:53 Dose: 40 mg Miscellaneous Medication (Pharmacy To Dose) 1 each PO .WARFARIN PRN PRN Reason: Pharmacy to dose Nystatin (Mycostatin Powder) 0 gm TOP BID [facility] [place] Last Admin: 12/13/18 20:54 Dose: 1 applic Ondansetron HCl (Zofran) 4 mg IVP Q6H PRN PRN Reason: Nausea/Vomiting Last Admin: 12/09/18 13:43 Dose: 4 mg Pantoprazole Sodium (Protonix) 40 mg PO DAILY [facility] [place] Last Admin: 12/13/18 09:14 Dose: 40 mg Polyethylene Glycol (Miralax) 17 gm PO DAILY [facility] [place] Last Admin: 12/13/18 11:19 Dose: Not Given Rosuvastatin Calcium (Crestor) 40 mg PO HS [facility] [place] Last Admin: 12/13/18 20:54 Dose: 40 mg Saccharomyces Boulardii (Florastor) 250 mg PO DAILY [facility] [place] Last Admin: 12/13/18 09:13 Dose: 250 mg Senna (Senokot) 2 tab PO HSPRN PRN PRN Reason: Constipation Sertraline HCl (Zoloft) 50 mg PO DAILY [facility] [place] Last Admin: 12/13/18 09:13 Dose: 50 mg Sodium Chloride (Flush - Normal Saline) 10 ml IVF Q12HR [facility] [place] Last Admin: 12/13/18 20:54 Dose: 10 ml Sodium Chloride (Flush - Normal Saline) 10 ml IVF PRN PRN PRN Reason: Saline Flush Warfarin Sodium (Coumadin) 3 mg PO 1700 [facility] [place] Last Admin: 12/13/18 16:23 Dose: 3 mg
[2018-12-14] MEDS: metroNIDAZOLE 500 MG in Premix Bag 1 BAG IVPB SCH ×4 (00:05→23:29)
[2018-12-14 07:41] LABS: INR-International Normal Ratio 3.8; Prothrombin Time 37.4 SEC (12.0-14.7)
[2018-12-14 07:56] LABS: Anion Gap 9 mmol/L (10-20); BUN (Urea Nitrogen) 8 mg/dL (9.8-20.1); Calc. Creatinine Clearance 50 mL/min (70-130); Calcium 8.4 mg/dL (7.8-10.44); Carbon Dioxide 25 mmol/L (23-31); Chloride 108 mmol/L (98-107); Estimated GFR-MDRD 88; Glucose 90 mg/dL (83-110); Potassium 4.2 mmol/L (3.5-5.1); Sodium 138 mmol/L (136-145)
[2018-12-14] MEDS: Furosemide 20 MG TAB PO SCH (09:21)
[2018-12-14] MEDS: Megestrol Acetate 40 MG TAB PO SCH ×2 (09:21→21:01)
[2018-12-14] MEDS: Amiodarone 200 MG TAB PO SCH ×2 (09:21→21:01)
[2018-12-14] MEDS: Saccharomyces boulardii 250 MG CAP PO SCH (09:21)
[2018-12-14] MEDS: Polyethylene Glycol 3350 17 GM Packet PO SCH (09:22)
[2018-12-14] MEDS: Nystatin Powder 15 GM BOT TOP SCH ×2 (09:22→21:02)
[2018-12-14] MEDS: Amoxicillin/Potassium Clav 400 mg/5 ml Oral Suspension PO SCH ×2 (09:30→21:06)
[2018-12-14] MEDS: Fluticasone Propionate Nasal Spray 16 gm Bottle NASAL SCH (14:14)
[2018-12-14] MEDS: Ondansetron PF 4 MG/2 ML Vial IVP PRN (14:25)
[2018-12-14] MEDS ORDERED: Warfarin Sodium 2 MG TAB PO SCH (17:00)
[2018-12-14] MEDS: Rosuvastatin 20 MG TAB PO SCH (21:02)
[2018-12-14] MEDS: Acetaminophen 500 MG TAB PO PRN (21:02)
--- NOTE | 2018-12-14 22:53 | PDOC.PN ---
- Subjective Encounter Start Date: 12/14/18 Encounter Start Time: 09:30 Patient seen and examined for multiple medical issues. No new complaints. No overnight events - Objective Resuscitation Status - Order Detail: 12/02/18 19:46 Resuscitation Status Routine Resuscitation Status: DNAR: NO Resuscitation Discussed with: discussed with brother BALJEET CONTRERAS Reviewed: Yes Vital Signs & Weight: Vital Signs (12 hours) Temp Pulse Resp BP Pulse Ox 12/14/18 20:00 97.7 F 72 16 121/66 94 L Weight Admit Weight 115 lb Weight 115 lb I&O: 12/13/18 12/14/18 12/15/18 06:59 06:59 06:59 Intake Total 1440 1205 1020 Output Total 250 Balance 7080 341 0887 Result Diagrams: 12/12/18 06:07 12/14/18 07:19 Phys Exam - Physical Examination Constitutional: NAD Respiratory: no wheezing, no rhonchi Cardiovascular: RRR, no rub Gastrointestinal: soft, positive bowel sounds Dx/Plan - Plan 1. Sepsis with acute organ dysfunction with toxic metabolic encephalopathy secondary to sigmoid colitis with pericolonic abscess. 2. Bilateral lower extremity deep venous thrombosis - Warfarin 3. Acute hypoxic respiratory failure secondary to bilateral pleural effusion as well as HCAP, suspected aspiration. 4. Swallow dysfunction - on modified diet. 5. Elevated troponin secondary to demand ischemia. 6. Hypokalemia/hyponatremia/hypomagnesemia/hypophosphatemia 7. Severe protein-calorie malnutrition. 8. Do not resuscitate. 9. Dementia. 10. Hypertension. 11. Hyperlipidemia. 12. 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 13. Renal cyst. PLAN: Warfarin on hold - INR 3.8 Check INR in AM Cont current meds including the Atbx Await placement Stable for discharge Cont other meds as below Review of Systems - Review of Systems Respiratory: negative: Cough, Dry, Shortness of Breath, Hemoptysis, SOB with Excertion, Pleuritic Pain, Sputum, Wheezing Cardiovascular: negative: chest pain, palpitations, orthopnea, paroxysmal nocturnal dyspnea, edema, light headedness, other - Medications/Allergies Allergies/Adverse Reactions: Allergies Allergy/AdvReac Type Severity Reaction Status Date / Time No Known Drug Allergies Allergy Verified 01/29/17 19:48 Medications: Current Medications Acetaminophen (Tylenol) 500 mg PO Q4H PRN PRN Reason: Headache/Fever or Pain Last Admin: 12/14/18 21:02 Dose: 500 mg Albuterol Sulfate (Albuterol Sulfate) 1.25 mg NEB [id number] PRN PRN Reason: Wheezing Last Admin: 12/09/18 22:12 Dose: 1.25 mg Amiodarone HCl (Cordarone) 400 mg PO BID [facility] Last Admin: 12/14/18 21:01 Dose: 400 mg Amoxicillin/Clavulanate Potassium (Augmentin 400mg/5ml Oral Susp) 400 mg PO BID [facility] Last Admin: 12/14/18 21:06 Dose: 400 mg Bisacodyl (Dulcolax) 10 mg PO DAILYPRN PRN PRN Reason: Constipation Calcium Carbonate (Tums) 1,000 mg PO Q4H PRN PRN Reason: Heartburn or Indigestion Fluticasone Propionate (Flonase Nasal [place]) 0 gm NASAL Q24H [facility] Last Admin: 12/14/18 14:14 Dose: 1 sprays Furosemide (Lasix) 20 mg PO DAILY [facility] Last Admin: 12/14/18 09:21 Dose: 20 mg Guaifenesin (Robitussin Sf) 200 mg PO Q4H PRN PRN Reason: Cough Last Admin: 12/11/18 20:38 Dose: 200 mg Metronidazole 500 mg/ Device 100 mls @ 100 mls/hr IVPB 0800,1600,2359 [facility] Last Admin: 12/14/18 15:14 Dose: 100 mls Megestrol Acetate (Megace) 40 mg PO BID [facility] Last Admin: 12/14/18 21:01 Dose: 40 mg Miscellaneous Medication (Pharmacy To Dose) 1 each PO .WARFARIN PRN PRN Reason: Pharmacy to dose Nystatin (Mycostatin Powder) 0 gm TOP BID [facility] Last Admin: 12/14/18 21:02 Dose: 1 applic Ondansetron HCl (Zofran) 4 mg IVP Q6H PRN PRN Reason: Nausea/Vomiting Last Admin: 12/14/18 14:25 Dose: 4 mg Pantoprazole Sodium (Protonix) 40 mg PO DAILY [facility] Last Admin: 12/14/18 09:22 Dose: 40 mg Polyethylene Glycol (Miralax) 17 gm PO DAILY [facility] Last Admin: 12/14/18 09:22 Dose: 17 gm Rosuvastatin Calcium (Crestor) 40 mg PO HS [facility] Last Admin: 12/14/18 21:02 Dose: 40 mg Saccharomyces Boulardii (Florastor) 250 mg PO DAILY [facility] Last Admin: 12/14/18 09:21 Dose: 250 mg Senna (Senokot) 2 tab PO HSPRN PRN PRN Reason: Constipation Sertraline HCl (Zoloft) 50 mg PO DAILY [facility] Last Admin: 12/14/18 09:21 Dose: 50 mg Sodium Chloride (Flush - Normal Saline) 10 ml IVF Q12HR [facility] Last Admin: 12/14/18 21:02 Dose: 10 ml Sodium Chloride (Flush - Normal Saline) 10 ml IVF PRN PRN PRN Reason: Saline Flush Last Admin: 12/14/18 14:25 Dose: 10 ml Warfarin Sodium (Coumadin) 2 mg PO 1700 [facility]
[2018-12-15 07:44] LABS: Hemoglobin 11.6 g/dL (12.0-16.0); Platelet Count 474 thou/uL (130-400)
[2018-12-15 07:46] LABS: Prothrombin Time 38.9 SEC (12.0-14.7)
[2018-12-15] MEDS: metroNIDAZOLE 500 MG in Premix Bag 1 BAG IVPB SCH ×2 (08:00→15:47)
[2018-12-15] MEDS: Amoxicillin/Potassium Clav 400 mg/5 ml Oral Suspension PO SCH ×2 (09:46→21:13)
[2018-12-15] MEDS: Saccharomyces boulardii 250 MG CAP PO SCH (09:47)
[2018-12-15] MEDS: Megestrol Acetate 40 MG TAB PO SCH ×2 (09:47→21:13)
[2018-12-15] MEDS: Furosemide 20 MG TAB PO SCH (09:47)
[2018-12-15] MEDS: Amiodarone 200 MG TAB PO SCH ×2 (09:47→21:12)
[2018-12-15] MEDS: Polyethylene Glycol 3350 17 GM Packet PO SCH (09:48)
[2018-12-15] MEDS: Nystatin Powder 15 GM BOT TOP SCH ×2 (09:57→21:14)
--- NOTE | 2018-12-15 13:35 | PDOC.GSPN ---
Surgery Progress Note: Subj - Subjective Narrative: I've stopped by to see the patient every other day this week and each time I see her she states that she is feeling better. Her appetite and oral intake have improved and she denies any pain or nausea. Her abdomen is nontender to palpation. Her colostomy appliance is staying in place and when I saw with the wound care team earlier this week it was looking better than before although the erosions will take a while to heal. At this point she doesn't seem to have any acute surgical issues and can be managed with completion of her course of antibiotics and meticulous wound care to the peristomal skin. She continues to be a very poor operative candidate. She can follow up with me on an outpatient basis. I will sign off for now. Surgery Progress Note: Obj - Vital signs Vital signs: Vital Signs - Most Recent Temp Pulse Resp BP Pulse Ox 97.4 F L 67 16 131/64 94 L 12/15/18 07:48 12/15/18 07:48 12/15/18 07:48 12/15/18 07:48 12/15/18 07:49 Surgery Progress Note: Results - Labs Result Diagrams: 12/15/18 06:53 12/14/18 07:19 Lab results: Laboratory Results - last 24 hr 12/15/18 12/15/18 06:53 06:53 Hgb 11.6 L Hct 36.6 Plt Count 474 H PT 38.9 H INR 4.0
[2018-12-15] MEDS: Fluticasone Propionate Nasal Spray 16 gm Bottle NASAL SCH (14:00)
[2018-12-15] MEDS: Rosuvastatin 20 MG TAB PO SCH (21:13)
--- NOTE | 2018-12-15 22:27 | PDOC.PN ---
- Subjective Encounter Start Date: 12/15/18 Encounter Start Time: 09:45 Patient seen and examined for Sepsis/Pneumonia. Appetite better. No new complaints. No overnight events - Objective Resuscitation Status - Order Detail: 12/02/18 19:46 Resuscitation Status Routine Resuscitation Status: DNAR: NO Resuscitation Discussed with: discussed with brother BALJEET CONTRERAS Reviewed: Yes Vital Signs & Weight: Vital Signs (12 hours) Temp Pulse Resp BP Pulse Ox 12/15/18 20:55 97.6 F 72 16 130/68 95 Weight Admit Weight 115 lb Weight 115 lb I&O: 12/14/18 12/15/18 12/16/18 06:59 06:59 06:59 Intake Total 1205 1230 840 Output Total 250 50 Balance 955 1180 840 Result Diagrams: 12/15/18 06:53 12/14/18 07:19 Phys Exam - Physical Examination Constitutional: NAD Respiratory: no wheezing, no rhonchi Cardiovascular: RRR, no rub Gastrointestinal: soft, positive bowel sounds Dx/Plan - Plan 1. Sepsis with acute organ dysfunction with toxic metabolic encephalopathy secondary to sigmoid colitis with pericolonic abscess. 2. Bilateral lower extremity deep venous thrombosis - Warfarin 3. Acute hypoxic respiratory failure secondary to bilateral pleural effusion as well as HCAP, suspected aspiration. 4. Swallow dysfunction - on modified diet. 5. Elevated troponin secondary to demand ischemia. 6. Hypokalemia/hyponatremia/hypomagnesemia/hypophosphatemia 7. Severe protein-calorie malnutrition. 8. Do not resuscitate. 9. Dementia. 10. Hypertension. 11. Hyperlipidemia. 12. 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 13. Renal cyst. PLAN: Hold Warfarin INR 4 Cont current meds as below Cont Abtx - Change Flagyl to PO Await placement Stable for discharge Cont other meds as below Review of Systems - Review of Systems Respiratory: negative: Cough, Dry, Shortness of Breath, Hemoptysis, SOB with Excertion, Pleuritic Pain, Sputum, Wheezing Cardiovascular: negative: chest pain, palpitations, orthopnea, paroxysmal nocturnal dyspnea, edema, light headedness, other - Medications/Allergies Allergies/Adverse Reactions: Allergies Allergy/AdvReac Type Severity Reaction Status Date / Time No Known Drug Allergies Allergy Verified 01/29/17 19:48 Medications: Current Medications Acetaminophen (Tylenol) 500 mg PO Q4H PRN PRN Reason: Headache/Fever or Pain Last Admin: 12/14/18 21:02 Dose: 500 mg Albuterol Sulfate (Albuterol Sulfate) 1.25 mg NEB [id number] PRN PRN Reason: Wheezing Last Admin: 12/09/18 22:12 Dose: 1.25 mg Amiodarone HCl (Cordarone) 400 mg PO BID [facility] Last Admin: 12/15/18 21:12 Dose: 400 mg Amoxicillin/Clavulanate Potassium (Augmentin 400mg/5ml Oral Susp) 400 mg PO BID [facility] Last Admin: 12/15/18 21:13 Dose: 400 mg Bisacodyl (Dulcolax) 10 mg PO DAILYPRN PRN PRN Reason: Constipation Calcium Carbonate (Tums) 1,000 mg PO Q4H PRN PRN Reason: Heartburn or Indigestion Fluticasone Propionate (Flonase Nasal [place]) 0 gm NASAL Q24H [facility] Last Admin: 12/15/18 14:00 Dose: 1 sprays Furosemide (Lasix) 20 mg PO DAILY [facility] Last Admin: 12/15/18 09:47 Dose: 20 mg Guaifenesin (Robitussin Sf) 200 mg PO Q4H PRN PRN Reason: Cough Last Admin: 12/11/18 20:38 Dose: 200 mg Megestrol Acetate (Megace) 40 mg PO BID [facility] Last Admin: 12/15/18 21:13 Dose: 40 mg Metronidazole (Flagyl) 500 mg PO TID [facility] Miscellaneous Medication (Pharmacy To Dose) 1 each PO .WARFARIN PRN PRN Reason: Pharmacy to dose Nystatin (Mycostatin Powder) 0 gm TOP BID [facility] Last Admin: 12/15/18 21:14 Dose: 1 applic Ondansetron HCl (Zofran) 4 mg IVP Q6H PRN PRN Reason: Nausea/Vomiting Last Admin: 12/14/18 14:25 Dose: 4 mg Pantoprazole Sodium (Protonix) 40 mg PO DAILY [facility] Last Admin: 12/15/18 09:47 Dose: 40 mg Polyethylene Glycol (Miralax) 17 gm PO DAILY [facility] Last Admin: 12/15/18 09:48 Dose: 17 gm Rosuvastatin Calcium (Crestor) 40 mg PO HS [facility] Last Admin: 12/15/18 21:13 Dose: 40 mg Saccharomyces Boulardii (Florastor) 250 mg PO DAILY [facility] Last Admin: 12/15/18 09:47 Dose: 250 mg Senna (Senokot) 2 tab PO HSPRN PRN PRN Reason: Constipation Sertraline HCl (Zoloft) 50 mg PO DAILY [facility] Last Admin: 12/15/18 09:47 Dose: 50 mg Sodium Chloride (Flush - Normal Saline) 10 ml IVF Q12HR [facility] Last Admin: 12/15/18 21:15 Dose: Not Given Sodium Chloride (Flush - Normal Saline) 10 ml IVF PRN PRN PRN Reason: Saline Flush Last Admin: 12/15/18 21:14 Dose: 10 ml Warfarin Sodium (Coumadin) 2 mg PO 1700 [facility]
[2018-12-15] MEDS ORDERED: metroNIDAZOLE 500 MG TAB PO SCH (22:30)
[2018-12-16] MEDS: Amiodarone 200 MG TAB PO SCH ×2 (07:54→20:27)
[2018-12-16] MEDS: Furosemide 20 MG TAB PO SCH (07:55)
[2018-12-16] MEDS: Megestrol Acetate 40 MG TAB PO SCH ×2 (07:55→20:27)
[2018-12-16] MEDS: metroNIDAZOLE 500 MG TAB PO SCH ×3 (07:55→20:27)
[2018-12-16] MEDS: Saccharomyces boulardii 250 MG CAP PO SCH (07:55)
[2018-12-16] MEDS: Polyethylene Glycol 3350 17 GM Packet PO SCH (07:56)
[2018-12-16] MEDS: Nystatin Powder 15 GM BOT TOP SCH ×2 (08:01→20:28)
[2018-12-16 08:11] LABS: Prothrombin Time 39.1 SEC (12.0-14.7)
[2018-12-16] MEDS: Amoxicillin/Potassium Clav 400 mg/5 ml Oral Suspension PO SCH ×2 (10:18→20:27)
[2018-12-16] MEDS: Fluticasone Propionate Nasal Spray 16 gm Bottle NASAL SCH (13:55)
[2018-12-16] MEDS: Acetaminophen 500 MG TAB PO PRN (20:28)
[2018-12-16] MEDS: Rosuvastatin 20 MG TAB PO SCH (20:28)
--- NOTE | 2018-12-16 23:32 | PDOC.PN ---
- Subjective Encounter Start Date: 12/16/18 Encounter Start Time: 11:30 Patient seen and examined for Sepsis/Colitis/Pneumonia. Feels better. No fever/ chills. No new complaints. No overnight events - Objective Resuscitation Status - Order Detail: 12/02/18 19:46 Resuscitation Status Routine Resuscitation Status: DNAR: NO Resuscitation Discussed with: discussed with brother BALJEET CONTRERAS Reviewed: Yes Vital Signs & Weight: Vital Signs (12 hours) Temp Pulse Resp BP Pulse Ox 12/16/18 20:00 97.9 F 73 18 124/62 95 12/16/18 11:36 98.1 F 76 18 124/62 96 Weight Admit Weight 115 lb Weight 115 lb I&O: 12/15/18 12/16/18 12/17/18 06:59 06:59 06:59 Intake Total 1230 1080 700 Output Total 50 Balance 1180 1080 700 Result Diagrams: 12/17/18 06:25 12/17/18 06:25 Additional Labs: Accuchecks 12/16/18 19:51 POC Glucose 107 Phys Exam - Physical Examination Constitutional: NAD Respiratory: no wheezing, no rhonchi Cardiovascular: RRR, no rub Gastrointestinal: soft, non-tender, positive bowel sounds Musculoskeletal: no edema Neurological: non-focal, moves all 4 limbs Dx/Plan - Plan 1. Sepsis with acute organ dysfunction with toxic metabolic encephalopathy secondary to sigmoid colitis with pericolonic abscess. 2. Bilateral lower extremity deep venous thrombosis - on Warfarin 3. Acute hypoxic respiratory failure secondary to bilateral pleural effusion/ HCAP, suspected aspiration. 4. Swallow dysfunction - on modified diet. 5. Elevated troponin secondary to demand ischemia. 6. Hypokalemia/hyponatremia/hypomagnesemia/hypophosphatemia 7. Severe protein-calorie malnutrition. 8. Do not resuscitate. 9. Dementia. 10. Hypertension. 11. Hyperlipidemia. 12. 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 13. Renal cyst. PLAN: Warfarinon hold Cont current meds as below Cont PO Abtx Await placement - Stable for discharge Review of Systems - Review of Systems Respiratory: negative: Cough, Dry, Shortness of Breath, Hemoptysis, SOB with Excertion, Pleuritic Pain, Sputum, Wheezing Cardiovascular: negative: chest pain, palpitations, orthopnea, paroxysmal nocturnal dyspnea, edema, light headedness, other - Medications/Allergies Allergies/Adverse Reactions: Allergies Allergy/AdvReac Type Severity Reaction Status Date / Time No Known Drug Allergies Allergy Verified 01/29/17 19:48 Medications: Current Medications Acetaminophen (Tylenol) 500 mg PO Q4H PRN PRN Reason: Headache/Fever or Pain Last Admin: 12/16/18 20:28 Dose: 500 mg Albuterol Sulfate (Albuterol Sulfate) 1.25 mg NEB [id number] PRN PRN Reason: Wheezing Last Admin: 12/09/18 22:12 Dose: 1.25 mg Amiodarone HCl (Cordarone) 400 mg PO BID [facility] Last Admin: 12/16/18 20:27 Dose: 400 mg Amoxicillin/Clavulanate Potassium (Augmentin 400mg/5ml Oral Susp) 400 mg PO BID [facility] Last Admin: 12/16/18 20:27 Dose: 400 mg Bisacodyl (Dulcolax) 10 mg PO DAILYPRN PRN PRN Reason: Constipation Calcium Carbonate (Tums) 1,000 mg PO Q4H PRN PRN Reason: Heartburn or Indigestion Fluticasone Propionate (Flonase Nasal [place]) 0 gm NASAL Q24H [facility] Last Admin: 12/16/18 13:55 Dose: 1 sprays Furosemide (Lasix) 20 mg PO DAILY [facility] Last Admin: 12/16/18 07:55 Dose: 20 mg Guaifenesin (Robitussin Sf) 200 mg PO Q4H PRN PRN Reason: Cough Last Admin: 12/11/18 20:38 Dose: 200 mg Megestrol Acetate (Megace) 40 mg PO BID [facility] Last Admin: 12/16/18 20:27 Dose: 40 mg Metronidazole (Flagyl) 500 mg PO TID [facility] Last Admin: 12/16/18 20:27 Dose: 500 mg Miscellaneous Medication (Pharmacy To Dose) 1 each PO .WARFARIN PRN PRN Reason: Pharmacy to dose Nystatin (Mycostatin Powder) 0 gm TOP BID [facility] Last Admin: 12/16/18 20:28 Dose: 1 applic Ondansetron HCl (Zofran) 4 mg IVP Q6H PRN PRN Reason: Nausea/Vomiting Last Admin: 12/14/18 14:25 Dose: 4 mg Pantoprazole Sodium (Protonix) 40 mg PO DAILY [facility] Last Admin: 12/16/18 07:55 Dose: 40 mg Polyethylene Glycol (Miralax) 17 gm PO DAILY [facility] Last Admin: 12/16/18 07:56 Dose: Not Given Rosuvastatin Calcium (Crestor) 40 mg PO HS [facility] Last Admin: 12/16/18 20:28 Dose: 40 mg Saccharomyces Boulardii (Florastor) 250 mg PO DAILY [facility] Last Admin: 12/16/18 07:55 Dose: 250 mg Senna (Senokot) 2 tab PO HSPRN PRN PRN Reason: Constipation Sertraline HCl (Zoloft) 50 mg PO DAILY [facility] Last Admin: 12/16/18 07:55 Dose: 50 mg Sodium Chloride (Flush - Normal Saline) 10 ml IVF Q12HR [facility] Last Admin: 12/16/18 20:28 Dose: 10 ml Sodium Chloride (Flush - Normal Saline) 10 ml IVF PRN PRN PRN Reason: Saline Flush Last Admin: 12/15/18 21:14 Dose: 10 ml Warfarin Sodium (Coumadin) 2 mg PO 1700 [facility]
[2018-12-17 06:42] LABS: #Basophils 0.1 thou/uL (0.0-0.2); #Eosinphils 0.3 thou/uL (0.0-0.7); #Lymphocytes 2.3 thou/uL (1.20-3.40); #Monocytes 0.7 thou/uL (0.11-0.59); #Neutrophils 4.1 thou/uL (1.40-6.50); %Basophils 1.6 % (0.0-1.0); %Eosinophils 4.1 % (0.0-10.0); %Lymphocytes 30.4 % (21.0-51.0); %Monocytes 9.7 % (0.0-10.0); %Neutrophils 54.2 % (42.0-75.0); Hemoglobin 10.4 g/dL (12.0-16.0); Mean Corpuscular Volume 93.8 fL (78.0-98.0); Mean Platelet Volume 8.4 fL (7.4-10.4); Platelet Count 421 thou/uL (130-400); RBC Distribution Width 14.4 % (11.5-14.5); Red Blood Cell (RBC) Count 3.48 mill/uL (4.20-5.40); White Blood Cell (WBC) Count 7.6 thou/uL (4.8-10.8)
[2018-12-17 06:46] LABS: Prothrombin Time 39.2 SEC (12.0-14.7)
[2018-12-17 07:03] LABS: ALT (SGPT) 25 U/L (8-55); AST (SGOT) 42 U/L (5-34); Albumin 2.6 g/dL (3.4-4.8); Alkaline Phosphatase 63 U/L (40-150); Anion Gap 8 mmol/L (10-20); BUN (Urea Nitrogen) 11 mg/dL (9.8-20.1); Bilirubin, Total 0.3 mg/dL (0.2-1.2); Calc. Creatinine Clearance 43 mL/min (70-130); Calcium 8.8 mg/dL (7.8-10.44); Carbon Dioxide 29 mmol/L (23-31); Chloride 107 mmol/L (98-107); Estimated GFR-MDRD 73; Globulin 2.8 g/dL (2.4-3.5); Glucose 99 mg/dL (83-110); Magnesium 1.9 mg/dL (1.6-2.6); Phosphorus 2.8 mg/dL (2.3-4.7); Potassium 4.6 mmol/L (3.5-5.1); Protein, Total 5.4 g/dL (6.0-8.3); Sodium 139 mmol/L (136-145)
[2018-12-17] MEDS: Amiodarone 200 MG TAB PO SCH ×2 (08:19→20:19)
[2018-12-17] MEDS: Megestrol Acetate 40 MG TAB PO SCH ×2 (08:19→20:19)
[2018-12-17] MEDS: Amoxicillin/Potassium Clav 400 mg/5 ml Oral Suspension PO SCH ×2 (08:19→20:23)
[2018-12-17] MEDS: Furosemide 20 MG TAB PO SCH (08:20)
[2018-12-17] MEDS: metroNIDAZOLE 500 MG TAB PO SCH ×3 (08:20→20:19)
[2018-12-17] MEDS: Nystatin Powder 15 GM BOT TOP SCH ×2 (08:20→20:20)
[2018-12-17] MEDS: Saccharomyces boulardii 250 MG CAP PO SCH (08:20)
[2018-12-17] MEDS: Polyethylene Glycol 3350 17 GM Packet PO SCH (08:20)
[2018-12-17] MEDS: Fluticasone Propionate Nasal Spray 16 gm Bottle NASAL SCH (13:51)
--- NOTE | 2018-12-17 14:05 | PDOC.PN ---
- Subjective Encounter Start Date: 12/17/18 Encounter Start Time: 10:30 Patient seen and examined for Colitis/Pneumonia. No new complaints. No overnight events - Objective Resuscitation Status - Order Detail: 12/02/18 19:46 Resuscitation Status Routine Resuscitation Status: DNAR: NO Resuscitation Discussed with: discussed with brother BALJEET CONTRERAS Reviewed: Yes Vital Signs & Weight: Vital Signs (12 hours) Temp Pulse Resp BP Pulse Ox 12/17/18 08:00 97.5 F L 66 18 116/66 96 Weight Admit Weight 115 lb Weight 115 lb I&O: 12/16/18 12/17/18 12/18/18 06:59 06:59 06:59 Intake Total 1080 810 420 Output Total 75 Balance 1080 735 420 Result Diagrams: 12/17/18 06:25 12/17/18 06:25 Additional Labs: Accuchecks 12/17/18 12/16/18 04:23 19:51 POC Glucose 89 107 Phys Exam - Physical Examination Constitutional: NAD Respiratory: no wheezing, no rhonchi Cardiovascular: RRR, no rub Gastrointestinal: soft, non-tender, positive bowel sounds Musculoskeletal: no edema Neurological: moves all 4 limbs Dx/Plan - Plan 1. Sepsis with acute organ dysfunction with toxic metabolic encephalopathy secondary to sigmoid colitis with pericolonic abscess. 2. Bilateral lower extremity deep venous thrombosis - on Warfarin 3. Acute hypoxic respiratory failure secondary to bilateral pleural effusion/ HCAP, suspected aspiration. 4. Swallow dysfunction - on modified diet. 5. Elevated troponin secondary to demand ischemia. 6. Hypokalemia/hyponatremia/hypomagnesemia/hypophosphatemia - replaced 7. Severe protein-calorie malnutrition. 8. Do not resuscitate. 9. Dementia. 10. Hypertension. 11. Hyperlipidemia. 12. 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 13. Renal cyst. PLAN: Warfarin on hold - INR 4 Cont PO Abtx and current meds as below Await placement - Stable for discharge Review of Systems - Review of Systems Respiratory: negative: Cough, Dry, Shortness of Breath, Hemoptysis, SOB with Excertion, Pleuritic Pain, Sputum, Wheezing Cardiovascular: negative: chest pain, palpitations, orthopnea, paroxysmal nocturnal dyspnea, edema, light headedness, other - Medications/Allergies Allergies/Adverse Reactions: Allergies Allergy/AdvReac Type Severity Reaction Status Date / Time No Known Drug Allergies Allergy Verified 01/29/17 19:48 Medications: Current Medications Acetaminophen (Tylenol) 500 mg PO Q4H PRN PRN Reason: Headache/Fever or Pain Last Admin: 12/16/18 20:28 Dose: 500 mg Albuterol Sulfate (Albuterol Sulfate) 1.25 mg NEB [id number] PRN PRN Reason: Wheezing Last Admin: 12/09/18 22:12 Dose: 1.25 mg Amiodarone HCl (Cordarone) 400 mg PO BID [facility] Last Admin: 12/17/18 08:19 Dose: 400 mg Amoxicillin/Clavulanate Potassium (Augmentin 400mg/5ml Oral Susp) 400 mg PO BID [facility] Last Admin: 12/17/18 08:19 Dose: 400 mg Bisacodyl (Dulcolax) 10 mg PO DAILYPRN PRN PRN Reason: Constipation Calcium Carbonate (Tums) 1,000 mg PO Q4H PRN PRN Reason: Heartburn or Indigestion Fluticasone Propionate (Flonase Nasal [place]) 0 gm NASAL Q24H [facility] Last Admin: 12/17/18 13:51 Dose: 1 sprays Furosemide (Lasix) 20 mg PO DAILY [facility] Last Admin: 12/17/18 08:20 Dose: 20 mg Guaifenesin (Robitussin Sf) 200 mg PO Q4H PRN PRN Reason: Cough Last Admin: 12/11/18 20:38 Dose: 200 mg Megestrol Acetate (Megace) 40 mg PO BID [facility] Last Admin: 12/17/18 08:19 Dose: 40 mg Metronidazole (Flagyl) 500 mg PO TID [facility] Last Admin: 12/17/18 13:53 Dose: 500 mg Miscellaneous Medication (Pharmacy To Dose) 1 each PO .WARFARIN PRN PRN Reason: Pharmacy to dose Nystatin (Mycostatin Powder) 0 gm TOP BID [facility] Last Admin: 12/17/18 08:20 Dose: 1 applic Ondansetron HCl (Zofran) 4 mg IVP Q6H PRN PRN Reason: Nausea/Vomiting Last Admin: 12/14/18 14:25 Dose: 4 mg Pantoprazole Sodium (Protonix) 40 mg PO DAILY [facility] Last Admin: 12/17/18 08:19 Dose: 40 mg Polyethylene Glycol (Miralax) 17 gm PO DAILY [facility] Last Admin: 12/17/18 08:20 Dose: 17 gm Rosuvastatin Calcium (Crestor) 40 mg PO HS [facility] Last Admin: 12/16/18 20:28 Dose: 40 mg Saccharomyces Boulardii (Florastor) 250 mg PO DAILY [facility] Last Admin: 12/17/18 08:20 Dose: 250 mg Senna (Senokot) 2 tab PO HSPRN PRN PRN Reason: Constipation Sertraline HCl (Zoloft) 50 mg PO DAILY [facility] Last Admin: 12/17/18 08:19 Dose: 50 mg Sodium Chloride (Flush - Normal Saline) 10 ml IVF Q12HR [facility] Last Admin: 12/17/18 08:21 Dose: 10 ml Sodium Chloride (Flush - Normal Saline) 10 ml IVF PRN PRN PRN Reason: Saline Flush Last Admin: 12/15/18 21:14 Dose: 10 ml Warfarin Sodium (Coumadin) 2 mg PO 1700 [facility]
[2018-12-17] MEDS: Rosuvastatin 20 MG TAB PO SCH (20:18)
[2018-12-17] MEDS: Acetaminophen 500 MG TAB PO PRN (20:21)
[2018-12-17 21:17] VITALS: TEMP 97.8
[2018-12-18 07:27] LABS: INR-International Normal Ratio 3.4; Prothrombin Time 34.4 SEC (12.0-14.7)
[2018-12-18 07:38] VITALS: BP 172/76
[2018-12-18] MEDS: Ondansetron PF 4 MG/2 ML Vial IVP PRN (07:47)
[2018-12-18] MEDS: Furosemide 20 MG TAB PO SCH ×2 (07:48→08:01)
[2018-12-18] MEDS: metroNIDAZOLE 500 MG TAB PO SCH ×3 (07:48→16:27)
[2018-12-18] MEDS: Polyethylene Glycol 3350 17 GM Packet PO SCH (07:48)
[2018-12-18] MEDS: Megestrol Acetate 40 MG TAB PO SCH ×2 (07:48→08:01)
[2018-12-18] MEDS: Saccharomyces boulardii 250 MG CAP PO SCH ×2 (07:48→08:01)
[2018-12-18] MEDS: Amiodarone 200 MG TAB PO SCH ×2 (07:49→08:00)
[2018-12-18] MEDS: Amoxicillin/Potassium Clav 400 mg/5 ml Oral Suspension PO SCH ×2 (07:50→08:01)
[2018-12-18] MEDS: Nystatin Powder 15 GM BOT TOP SCH (07:51)
--- NOTE | 2018-12-18 08:57 | RAD ---
KUB: Comparison: 02-01-17 History: Abdominal pain. FINDINGS: Single view of the abdomen shows a nonspecific, nonobstructed bowel gas pattern. Cholecystectomy clip s are seen. Air is seen throughout the colon. IMPRESSION: Nonobstructed bowel gas pattern. POS: [facility]
[2018-12-18] MEDS: Fluticasone Propionate Nasal Spray 16 gm Bottle NASAL SCH (15:43)
--- NOTE | 2018-12-18 21:10 | DIS ---
DATE OF ADMISSION: 12/02/2018 DATE OF DISCHARGE: 12/18/2018 [address]CHAR[address] DISPOSITION: [facility]. ALLERGIES: NO KNOWN DRUG ALLERGIES. CODE STATUS: Do not resuscitate. The patient was seen and examined on the day of discharge. Denies any new complaints. No chest pain, shortness of breath, or palpitations reported. Nausea has significantly improved. DISCHARGE MEDICATIONS: 1. Protonix 40 mg daily. 2. Crestor 40 mg at bedtime. 3. Zoloft 50 mg daily. 4. Tylenol as needed. 5. Albuterol nebulization as needed. 6. Maalox as needed. 7. Amiodarone 400 mg b.i.d. 8. Augmentin 400 mg b.i.d. to be discontinued on December 23, 2018. 9. Flagyl 500 mg three times daily to be discontinued on December 23, 2018. 10. Nystatin powder as needed. 11. MiraLAX daily. 12. Florastor daily. 13. Senokot as needed. 14. Coumadin 1 mg daily to be restarted when the INR is between 2 and 3. 15. Tums as needed. 16. Dulcolax as needed. INPATIENT [employer]: General Surgery, Dr. Maguire. DIAGNOSTIC TESTS: Chest x-ray on admission was negative for infiltrate. CT scan of the abdomen and pelvis with contrast on admission showed prominent colitis involving the sigmoid colon with pericolonic abscess. There was wall thickening involving the remainder of the colon. There was a large left lower quadrant parastomal hernia containing unobstructed loops of small and large bowel. Bilateral lower extremity Doppler on December 06, 2018, was consistent with DVT in the left lower extremity with a probable DVT in the distal portion of the right femoral vein as well. Chest x-ray on December 06, 2018, showed bilateral lower lobe opacification suggesting progression of pleural effusion. KUB on the day of discharge was negative. BRIEF HOSPITAL COURSE: The patient is an 88-year-old female with colostomy, dementia, and hypertension, presented to the emergency room on December 02, 2018, with generalized weakness. Workup was consistent with sepsis secondary to colitis along with abscess. The patient was seen by General Surgery, Dr. Maguire. She was managed conservatively with antibiotics given her other comorbidities and advanced age. She also had encephalopathy due to sepsis that gradually improved. She had multiple electrolyte abnormalities, which were gradually replaced. She was also diagnosed with bilateral lower extremity DVT requiring anticoagulation. She was found to have bilateral pleural effusion with healthcare associated pneumonia, probably due to aspiration. She was started on modified diet per speech therapy. Her appetite is gradually improving. She would benefit from calorie counting. She will require PT/INR to be monitored. INR on the day of discharge is 3.4. FINAL DIAGNOSES: 1. Sepsis with acute organ dysfunction with toxic metabolic encephalopathy secondary to sigmoid colitis with pericolonic abscess. 2. Bilateral lower extremity deep venous thrombosis, started on warfarin. 3. Acute hypoxic respiratory failure secondary to bilateral pleural effusion and healthcare associated pneumonia, suspected aspiration, improved. 4. Swallow dysfunction. 5. Elevated troponin secondary to demand ischemia. 6. Multiple electrolyte abnormalities including hypokalemia, hyponatremia, hypomagnesemia, and hypophosphatemia. 7. Severe protein-calorie malnutrition. 8. Hypertension. 9. Hyperlipidemia. 10. History of tachyarrhythmias. 11. Renal cyst. 12. 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 13. Dementia. 14. Do not resuscitate. Total time coordinating the discharge of this patient was 38 minutes. Job ID: [id number]
== END 2018-12-18 16:44 | DRG 871 ==
LOC: ERS 14:32 → T4-B 17:21 → ERHOLD 19:04 → T4-B 12-03 17:29
PROVIDERS: ADMIT Hospitalist; ATTEND Hospitalist
DX: A41.9 Sepsis, unspecified organism (principal); G92 Toxic encephalopathy; I21.A1 Myocardial infarction type 2; J96.01 Acute respiratory failure with hypoxia; J18.9 Pneumonia, unspecified organism; E43 Unspecified severe protein-calorie malnutrition; J69.0 Pneumonitis due to inhalation of food and vomit; K94.09 Other complications of colostomy; E87.1 Hypo-osmolality and hyponatremia; K63.0 Abscess of intestine; I82.413 Acute embolism and thrombosis of femoral vein, bilateral; R65.20 Severe sepsis without septic shock; K43.5 Parastomal hernia without obstruction or gangrene; Z66 Do not resuscitate; I10 Essential (primary) hypertension; E78.5 Hyperlipidemia, unspecified; E87.6 Hypokalemia; F03.90 Unspecified dementia, unspecified severity, without behavioral disturbance, psychotic disturbance, mood disturbance, and anxiety; K52.9 Noninfective gastroenteritis and colitis, unspecified; R13.10 Dysphagia, unspecified; N28.1 Cyst of kidney, acquired; Z68.22 Body mass index [BMI] 22.0-22.9, adult
CPT/HCPCS: 36415; 36416; 51701; 71045; 71275; 74018; 74177; 80048; 80053; 80061; 81003; 81015; 82550; 82553; 83605; 83690; 83735; 84100; 84134; 84484; 85014; 85018; 85025; 85049; 85610; 87040; 87086; 87804; 90471; 90670; 93005; 93970; 94760; 96361; 96365; 96366; 96367; 96368; A4353; G0009; J0692; J0696; J1650; J1940; J2405; J2543; J3475; J3480; J7050; Q9966; Q9967; S0179